=== PATIENT | female | born 1975 | race Caucasian/White ===

== ENCOUNTER 2016-10-17 22:53 | Emergency (ER) | payer SELFPAY ==
[~2016-10-17] VITALS: Ht 160 cm; Wt 72.6 kg
[~2016-10-17 22:53] MED LIST: AGM875T PO; PSEU120T16 PO
--- OUTSIDE RECORDS SUMMARY | 2016-10-17 22:57 | XMS REPORT | Continuity of Care Document ---
Author Author [facility] Organization [facility] Address Unknown Phone Unavailable Care Team Providers Care Medical Administrative Specialist Name Role Phone NO, LOCAL PHYSICIAN PCP Unavailable Insurance Providers Payer Name Policy Number Subscriber Name Relationship Self Pay Vannesa Prince 17 Self / Same As Patient Advance Directives Directive Response Recorded Date/Time Advance Directives No 01/04/15 12:13pm Resuscitation Status Full Code 01/04/15 12:13pm Problems Medical Problems Problem Onset Date Status Serous otitis media Unknown Active Medications Medication Dose Route Sig Days/Qty Instructions Order Date Discontinued Date Status Amoxicillin/Clavulanate K 1 Tab PO TWICE A DAY 20 Qty 01/04/15 Active Pseudoephedrine Hcl 120 Mg PO TWICE A DAY 14 Qty 01/04/15 Active Social History Social History Problem Response Recorded Date/Time Alcohol Use Occasionally Uses 01/04/2015 12:13pm Recreational Drug Use No 01/04/2015 12:13pm Recent Foreign Travel No 01/04/2015 11:55am Recent Infectious Disease Exposure No 01/04/2015 11:55am Hospitalization with Isolation Denies 01/04/2015 11:55am Sexually Transmitted Disease No 01/04/2015 12:13pm Smoking Status Current Everyday Smoker 01/04/2015 12:13pm Query Response Start Date Stop Date Smoking Status Current Everyday Smoker Hospital Discharge Instructions No hospital discharge instructions. Plan of Care No plan of care. Functional Status No functional status results. Allergies, Adverse Reactions, Alerts Allergen Type Severity Reaction Status Last Updated No Known Drug Allergies Active 01/04/15 Immunizations No immunization records. Vital Signs Acute Vital Signs Vital Response Date/Time Temperature (Fahrenheit) 98.6 degrees F (97.6 - 99.5) Temperature (Calculated Celsius) 37.30528 degrees C (36.4 - 37.5) Pulse Rate (adult) 70 bpm (60 - 90) Respiratory Rate 16 bpm (12 - 24) O2 Sat by Pulse Oximetry 98 % (88 - 100) Blood Pressure 130/101 mm Hg Pain Pain Intensity 0 Height (Feet) 5 feet Height (Inches) 3 inches Height (Calculated Centimeters) 160.243599 cm Weight (Pounds) 150 pounds Weight (Calculated Kilograms) 68.419809 kilograms Calculated BMI 26.57 Results No known relevant diagnostic tests, laboratory data and/or discharge summary. Procedures No known history of procedures. Encounters Encounter Location Date/Time Departed Emergency Room Via [facility] 01/04/15 11:33am Recent Diagnosis
[2016-10-17] MEDS ORDERED: LACTATED RINGERS 1,000 ML IV ONE (23:08)
[2016-10-17 23:42] LABS: BASOPHILS # (AUTO) 0.1 10^3/uL (0.0-0.1); BASOPHILS % (AUTO) 1 % (0-10); EOSINOPHILS # (AUTO) 0.3 10^3/uL (0.0-0.3); EOSINOPHILS % (AUTO) 2 % (0-10); LYMPHOCYTES % (AUTO) 32 % (12-44); MEAN CORPUSCULAR HEMOGLOBIN 31 PG (25-34); MEAN CORPUSCULAR HGB CONC 34 G/DL (32-36); MEAN CORPUSCULAR VOLUME 93 FL (80-99); MEAN PLATELET VOLUME 11.2 FL (7.4-10.4); MONOCYTES # (AUTO) 1.1 X 10^3 (0.0-1.0); MONOCYTES % (AUTO) 8 % (0-12); NEUTROPHILS # (AUTO) 7.4 X 10^3 (1.8-7.8); NEUTROPHILS % (AUTO) 57 % (42-75); PLATELET COUNT 245 10^3/uL (130-400); RED BLOOD COUNT 4.88 10^6/uL (4.35-5.85); WHITE BLOOD COUNT 12.8 10^3/uL (4.3-11.0)
[2016-10-18] MEDS ORDERED: LACTATED RINGERS 1,000 ML IV ONE (00:24)
[2016-10-18 00:27] LABS: ALANINE AMINOTRANSFERASE 25 U/L (0-55); ALBUMIN 4.4 G/DL (3.2-4.5); ALCOHOL 208 MG/DL (<10); ANION GAP 14 MMOL/L (5-14); ASPARTATE AMINO TRANSFERASE 20 U/L (5-34); BILIRUBIN,TOTAL 0.2 MG/DL (0.1-1.0); BLOOD UREA NITROGEN 10 MG/DL (7-18); BUN/CREATININE RATIO 12; CALCIUM 9.2 MG/DL (8.5-10.1); CARBON DIOXIDE 19 MMOL/L (21-32); CHLORIDE 109 MMOL/L (98-107); CREATININE SERUM 0.84 MG/DL (0.60-1.30); GFR ESTIMATED > 60; GLUCOSE 96 MG/DL (70-105); POTASSIUM 3.8 MMOL/L (3.6-5.0); SALICYLATE < 5.0 MG/DL (5.0-20.0); SODIUM 142 MMOL/L (135-145); TOTAL PROTEIN 7.8 G/DL (6.4-8.2)
[2016-10-18 00:30] LABS: ACETAMINOPHEN < 10 UG/ML (10-30)
--- NOTE | 2016-10-18 00:59 | ED Psychosocial ---
General Chief Complaint: Substance Abuse Stated Complaint: AMS Nursing Triage Note: PT TO ED 6 PER EMS FOR C/O ETOH INTOXICATION. PT STATES "I'M A DRUNK". REPORTS SHE'S HAD "8-10 TODAY". DENIES THOUGHTS OF SELF HARM AT THIS TIME. Source: patient, EMS Exam Limitations: other (PT CONTRADICTS HERSELF MULTIPLE TIMES) History of Present Illness Time seen by provider: 23:05 Initial Comments PT ARRIVES VIA EMS FROM HOME--EMS WAS REPORTEDLY CALLED FOR [facility] PT STATES SHE IS HERE "BECAUSE I'M A DRUNK" PT STATES SHE HAS HAD "8 -10" --WILL NOT STATE WHAT SHE WAS DRINKING PT STATES THIS IS NO DIFFERENT TODAY--STATES "I'M TO THE POINT THAT I'M DONE DRINKING" THEN STATES SHE DRINKS " VERY SELDOM" "MAYBE 8 BEERS ON A WEEKEND" THEN STATES "I DRINK AND I POP PILLS" --STATES SHE TOOK OTC DIET PILLS > 13 YEARS AGO AND "NARCOTICS" OVER 13 YEARS AGO--BUT WILL NOT STATE WHAT KIND, AND ADAMANTLY DENIES TAKING PILLS OF ANY KIND FOR OVER 13 YEARS PT STATES "THE DIET PILLS HAVE REALLY AFFECTED ME AND NOBODY WANTS TO LISTEN" PT STATES SHE WANTS TREATMENT FOR DRUG AND ALCOHOL ABUSE STATES SHE HAS NEVER SOUGHT CARE AT ANY TIME FOR DRUG OR ALCOHOL ABUSE--STATES "I NEVER GAVE IT ANY THOUGHT--I DON'T DO IT VERY OFTEN" PT DENIES SUICIDAL THOUGHTS/ATTEMPTS NO PCP Allergies and Home Medications Allergies Coded Allergies: No Known Drug Allergies (Unverified , 01/04/15) Home Medications Amoxicillin/Clavulanate K 875 Mg Tab #20 1 TAB PO BID Prescribed by: CHEN RUBIO on 01/04/15 1235 Pseudoephedrine Hcl 120 Mg Tablet.sa #14 120 MG PO BID Prescribed by: CHEN RUBIO on 01/04/15 1235 Constitutional: no symptoms reported EENTM: no symptoms reported Respiratory: no symptoms reported Cardiovascular: no symptoms reported Gastrointestinal: no symptoms reported Genitourinary: no symptoms reported : No Control/STD Prophylaxis: Other (BTL) Musculoskeletal: no symptoms reported Skin: no symptoms reported Psychiatric/Neurological: No Symptoms ReportedDenies Anxiety, Denies Depressed , Denies Emotional Problems, Denies Headache, Denies Numbness, Denies Paresthesia, Denies Seizure, Denies Tingling, Denies Tremors, Denies Weakness Past Ttthwsg-Radtda-Taqzvf Hx Patient Social History Alcohol Use: Occasionally Uses (HEAVY AT TIMES) Recreational Drug Use: Yes ("PILLS"--OTC DIET PILLS, "NARCOTICS" ( WILL NOT ELABORATE) > 13 YEARS AGO, PER PT ON 10/17/16) Drug of Choice: HX OF Smoking Status: Current Everyday Smoker (1/2-1 PPD) Type Used: Cigarettes Recent Foreign Travel: No Contact w/Someone Who Travel: No Recent Infectious Disease Expo: No Recent Hopitalizations: No Surgeries HX Surgeries: Yes ( X 3) Surgeries: Section, Tubal Ligation Respiratory Hx Respiratory Disorders: No Cardiovascular Hx Cardiac Disorders: No Neurological Hx Neurological Disorders: No Reproductive System : No Hx : 3 Hx Para: 3 Hx Total # of Abortions (Spona: 0 Hx Reproductive Disorders: No Sexually Transmitted Disease: No 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 Genitourinary Hx Genitourinary Disorders: No Gastrointestinal Hx Gastrointestinal Disorders: No Musculoskeletal Hx Musculoskeletal Disorders: No Endocrine Hx Endocrine Disorders: No HEENT HX ENT Disorders: No Cancer Hx Cancer: No Psychosocial Hx Psychiatric Problems: No Integumentary HX Skin/Integumentary Disorder: No Blood Transfusions Hx Blood Disorders: No Physical Exam Vital Signs Vital Sign - Last 12Hours 10/17/16 23:03 Temp 99.2 Pulse 114 Resp 24 B/P 130/84 Pulse Ox 97 O2 Delivery Room Air Capillary Refill : Less Than 3 Seconds General Appearance: WD/WN no apparent distress HEENT: PERRL/EOMI Neck: non-tender full range of motion supple normal inspection Respiratory: normal breath sounds no respiratory distress no accessory muscle use Cardiovascular: normal peripheral pulses regular rate, rhythm no edema no JVD no murmur Gastrointestinal: normal bowel sounds non tender soft no organomegaly Extremities: normal range of motion non-tender normal inspection no pedal edema no calf tenderness normal capillary refill Neurologic/Psychiatric: corn cutter II-XII nml as tested no motor/sensory deficits alert normal mood/affect oriented x 3 other (SPEECH CLEAR, GAIT STEADY) Appearance/Memory: no memory impairment Behavior/Eye Contact: cooperative good eye contact normal speech Thoughts/Hallucinations: no apparent hallucination Skin: normal color warm/dry Progress/Results/Core Measures Results/Orders Lab Results Laboratory Tests Test 10/17/16 01:29 10/17/16 23:35 Range/Units Ur Tricyclic Antidepressants Screen NEGATIVE NEGATIVE Urine Amphetamines Screen NEGATIVE NEGATIVE Urine Bacteria TRACE /HPF Urine Barbiturates Screen NEGATIVE NEGATIVE Urine Benzodiazepines Screen NEGATIVE NEGATIVE Urine Bilirubin NEGATIVE NEGATIVE Urine Cannabinoids Screen NEGATIVE NEGATIVE Urine Casts NONE /LPF Urine Clarity CLEAR Urine Cocaine Screen NEGATIVE NEGATIVE Urine Color YELLOW Urine Crystals NONE /LPF Urine Culture Indicated NO Urine Glucose (UA) NEGATIVE NEGATIVE Urine Ketones 2+ H NEGATIVE Urine Leukocyte Esterase NEGATIVE NEGATIVE Urine Methadone Screen NEGATIVE NEGATIVE Urine Methamphetamines Screen NEGATIVE NEGATIVE Urine Mucus NEGATIVE /LPF Urine Nitrite NEGATIVE NEGATIVE Urine Opiates Screen NEGATIVE NEGATIVE Urine Oxycodone Screen NEGATIVE NEGATIVE Urine Phencyclidine Screen NEGATIVE NEGATIVE Urine Propoxyphene Screen NEGATIVE NEGATIVE Urine Protein NEGATIVE NEGATIVE Urine RBC NONE /HPF Urine RBC (Auto) NEGATIVE NEGATIVE Urine Specific [place] 1.015 L 1.016-1.022 Urine Squamous Epithelial Cells 0-2 /HPF Urine Urobilinogen NORMAL NORMAL MG/DL Urine WBC NONE /HPF Urine pH 5 5-9 Acetaminophen Level < 10 L 10-30 UG/ML Alanine Aminotransferase (ALT/SGPT) 25 0-55 U/L Albumin 4.4 3.2-4.5 G/DL Alkaline Phosphatase 48 40-136 U/L Anion Gap 14 5-14 MMOL/L Aspartate Amino Transf (AST/SGOT) 20 5-34 U/L BUN/Creatinine Ratio 12 Basophils # (Auto) 0.1 0.0-0.1 10^3/uL Basophils (%) (Auto) 1 0-10 % Blood Urea Nitrogen 10 7-18 MG/DL Calcium Level 9.2 8.5-10.1 MG/DL Carbon Dioxide Level 19 L 21-32 MMOL/L Chloride Level 109 H 98-107 MMOL/L Creatinine 0.84 0.60-1.30 MG/DL Eosinophils # (Auto) 0.3 0.0-0.3 10^3/uL Eosinophils (%) (Auto) 2 0-10 % Estimat Glomerular Filtration Rate > 60 Glucose Level 96 70-105 MG/DL Hematocrit 45 35-52 % Hemoglobin 15.3 11.5-16.0 G/DL Lymphocytes # (Auto) 4.0 1.0-4.0 X 10^3 Lymphocytes (%) (Auto) 32 12-44 % Mean Corpuscular Hemoglobin 31 25-34 PG Mean Corpuscular Hemoglobin Concent 34 32-36 G/DL Mean Corpuscular Volume 93 80-99 FL Mean Platelet Volume 11.2 H 7.4-10.4 FL Monocytes # (Auto) 1.1 H 0.0-1.0 X 10^3 Monocytes (%) (Auto) 8 0-12 % Neutrophils # (Auto) 7.4 1.8-7.8 X 10^3 Neutrophils (%) (Auto) 57 42-75 % Platelet Count 245 130-400 10^3/uL Potassium Level 3.8 3.6-5.0 MMOL/L Red Blood Count 4.88 4.35-5.85 10^6/uL Red Cell Distribution Width 13.0 10.0-14.5 % Salicylates Level < 5.0 L 5.0-20.0 MG/DL Serum Alcohol 208 H <10 MG/DL Serum Test, Qualitative NEGATIVE NEGATIVE Sodium Level 142 135-145 MMOL/L TSH [place] Testing 0.98 0.35-4.94 UIU/ML Total Bilirubin 0.2 0.1-1.0 MG/DL Total Protein 7.8 6.4-8.2 G/DL White Blood Count 12.8 H 4.3-11.0 10^3/uL My Orders Orders-SANDRAROSETTA K DO Ua Culture If Indicated (10/17/16 23:08) Thyroid Analyzer (10/17/16 23:08) Drug Screen Stat (Urine) (10/17/16 23:08) Cbc With Automated Diff (10/17/16 23:08) Comprehensive Metabolic Panel (10/17/16 23:08) Alcohol (10/17/16 23:08) Acetaminophen (10/17/16 23:08) Salicylate (10/17/16 23:08) Ekg Tracing (10/17/16 23:08) Monitor-Rhythm Ecg Trace Only (10/17/16 23:08) Saline Lock/Iv-Start (10/17/16 23:08) Hcg,Qualitative Serum (10/17/16 23:08) Saline Lock/Iv-Start (10/17/16 23:08) Lactated Ringers (Lr 1000 Ml Iv Solution (10/17/16 23:08) Ct Head Wo (10/18/16 00:01) Saline Lock/Iv-Start (10/18/16 00:24) Lactated Ringers (Lr 1000 Ml Iv Solution (10/18/16 00:24) Medications Given in ED Current Medications Medications Dose Ordered Sig/Aaron Route Start Time Stop Time Status Last Admin Dose Admin Lactated Ringer's 1,000 ml @ 0 mls/hr Q0M ONCE IV 10/17/16 23:08 10/17/16 23:18 DC 10/17/16 23:35 1,000 MLS/HR Lactated Ringer's 1,000 ml @ 0 mls/hr Q0M ONCE IV 10/18/16 00:24 10/18/16 00:25 DC 10/18/16 00:24 1,000 MLS/HR Vital Signs/I&O Vital Sign - Last 12Hours 10/17/16 23:03 Temp 99.2 Pulse 114 Resp 24 B/P 130/84 Pulse Ox 97 O2 Delivery Room Air Blood Pressure Mean: 99 Progress Note : Progress Note PT SLEPT FOR MOST OF ER STAY NO ABNORMAL BEHAVIOR PT REMAINED CALM AND COOPERATIVE THROUGHOUT ER STAY SPEECH CLEAR AND GAIT STEADY THROUGHOUT ER STAY ECG Initial ECG Impression Time: 23:23 Initial ECG Rate: 110 Initial ECG Rhythm: S.Tach Diagnostic Imaging Comments CT HEAD--NO ACUTE PROCESS, PER [facility] VIA FAX @ [id number] Reviewed: Reviewed by Me Departure Impression Impression: Primary Impression: Alcohol abuse Additional Impression: Alcohol intoxication Disposition: 01 HOME, SELF-CARE Condition: Stable Departure-Patient Inst. Referrals: NO,LOCAL PHYSICIAN (PCP/Family) Primary Care Physician Patient Instructions: ALCOHOL AND SUBSTANCE ABUSE, Alcohol Abuse and Alcoholism (DC), Drug Abuse and Drug Addiction (DC) Add. Discharge Instructions: LOTS OF CLEAR LIQUIDS NO DRUGS OR ALCOHOL CALL THIS MORNING TO ARRANGE FOR OUTPATIENT SUBSTANCE ABUSE TREATMENT --[facility] IN [place], [facility] IN [place], OR FACILITY OF YOUR CHOICE All discharge instructions reviewed with patient and/or family. Voiced understanding. ROSETTA FLORES DO Oct 18, 2016 00:59
[2016-10-18 01:36] LABS: BILIRUBIN,URINE NEGATIVE (NEGATIVE); KETONES,URINE 2+ (NEGATIVE); LEUKOCYTE ESTERASE ,URINE NEGATIVE (NEGATIVE); NITRITE,URINE NEGATIVE (NEGATIVE); PH,URINE 5 (5-9); PROTEIN,URINE NEGATIVE (NEGATIVE); UROBILINOGEN,URINE NORMAL (NORMAL)
[2016-10-18 01:43] LABS: SQUAMOUS EPITHELIAL CELL,UR 0-2 /HPF
[2016-10-18 02:08] VITALS: BP 105/73
--- NOTE | 2016-10-18 06:53 | Diagnostic Imaging Report ---
PROCEDURE: CT head without contrast. TECHNIQUE: Multiple contiguous axial images were obtained through the brain without the use of intravenous contrast. INDICATION: Mental status changes. There is no intracranial hemorrhage, hydrocephalus, edema, mass or mass effect. Orbits, sinuses and calvarium unremarkable. The basilar cisterns are patent. No sulcal effacement. IMPRESSION: No hemorrhage, infarct or acute appearing abnormality. Dictated by: Dictated on workstation # [id number]
== END 2016-10-18 02:08 | disposition home or self-care (01) ==
LOC: EDUNIT# 22:53 → ER 22:54
DX: F10.129 Alcohol abuse with intoxication, unspecified (principal); Y90.7 Blood alcohol level of 200-239 mg/100 ml; F17.210 Nicotine dependence, cigarettes, uncomplicated
CPT/HCPCS: 36415; 70450; 80053; 80306; 80320; 80329; 81000; 84443; 84703; 85025; 93005; 96360; 96361

== ENCOUNTER 2017-11-08 01:01 | Observation (INO) | payer SELFPAY ==
[2017-11-08] VITALS (16 sets, daily range): BP systolic 82–104; BP diastolic 35–74
[~2017-11-08] VITALS: Ht 160 cm; Wt 84.4 kg
[2017-11-08] MEDS ORDERED: LACTATED RINGERS 1,000 ML IV ONE (01:10)
[2017-11-08 01:26] LABS: BASOPHILS # (AUTO) 0.1 10^3/uL (0.0-0.1); BASOPHILS % (AUTO) 0 % (0-10); BILIRUBIN,URINE NEGATIVE (NEGATIVE); CLARITY,URINE CLEAR; COLOR,URINE YELLOW; EOSINOPHILS # (AUTO) 0.2 10^3/uL (0.0-0.3); EOSINOPHILS % (AUTO) 1 % (0-10); GLUCOSE, URINE (UA) NEGATIVE (NEGATIVE); HEMATOCRIT 43 % (35-52); HEMOGLOBIN 14.7 G/DL (11.5-16.0); KETONES,URINE NEGATIVE (NEGATIVE); LEUKOCYTE ESTERASE ,URINE NEGATIVE (NEGATIVE); LYMPHOCYTES # (AUTO) 4.9 X 10^3 (1.0-4.0); LYMPHOCYTES % (AUTO) 35 % (12-44); MEAN CORPUSCULAR HEMOGLOBIN 32 PG (25-34); MEAN CORPUSCULAR HGB CONC 34 G/DL (32-36); MEAN CORPUSCULAR VOLUME 93 FL (80-99); MEAN PLATELET VOLUME 11.7 FL (7.4-10.4); MONOCYTES # (AUTO) 0.8 X 10^3 (0.0-1.0); MONOCYTES % (AUTO) 6 % (0-12); NEUTROPHILS % (AUTO) 58 % (42-75); NITRITE,URINE NEGATIVE (NEGATIVE); PH,URINE 5 (5-9); PLATELET COUNT 229 10^3/uL (130-400); PROTEIN,URINE NEGATIVE (NEGATIVE); RED BLOOD COUNT 4.64 10^6/uL (4.35-5.85); RED CELL DISTRIBUTION WIDTH 12.9 % (10.0-14.5); UROBILINOGEN,URINE NORMAL (NORMAL); WHITE BLOOD COUNT 13.9 10^3/uL (4.3-11.0)
[2017-11-08 01:38] LABS: BACTERIA,URINE NEGATIVE /HPF
[2017-11-08 01:39] LABS: SQUAMOUS EPITHELIAL CELL,UR 0-2 /HPF
[2017-11-08 01:40] LABS: AMPHETAMINE SCREEN, URINE NEGATIVE (NEGATIVE); BARBITURATE SCREEN URINE NEGATIVE (NEGATIVE); BENZODIAZEPINES SCREEN URINE NEGATIVE (NEGATIVE); CANNABINOID SCREEN, URINE NEGATIVE (NEGATIVE); COCAINE SCREEN URINE NEGATIVE (NEGATIVE); METHADONE STAT NEGATIVE (NEGATIVE); METHAMPHETAMINE SCREEN URINE S NEGATIVE (NEGATIVE); OPIATE SCREEN URINE NEGATIVE (NEGATIVE); OXYCODONE STAT NEGATIVE (NEGATIVE); PROPOXYPHENE STAT NEGATIVE (NEGATIVE); TRICYCLIC ANTIDEPRESSANTS SCRE NEGATIVE (NEGATIVE)
[2017-11-08 01:49] LABS: ACETAMINOPHEN < 10 UG/ML (10-30); ALANINE AMINOTRANSFERASE 18 U/L (0-55); ALBUMIN 4.4 GM/DL (3.2-4.5); ALKALINE PHOSPHATASE 45 U/L (40-136); BILIRUBIN,TOTAL 0.2 MG/DL (0.1-1.0); BUN/CREATININE RATIO 15; CALCIUM 9.5 MG/DL (8.5-10.1); CARBON DIOXIDE 18 MMOL/L (21-32); CHLORIDE 111 MMOL/L (98-107); CREATININE SERUM 0.78 MG/DL (0.60-1.30); GFR ESTIMATED > 60; GLUCOSE 112 MG/DL (70-105); POTASSIUM 3.5 MMOL/L (3.6-5.0); SALICYLATE < 5.0 MG/DL (5.0-20.0); SODIUM 141 MMOL/L (135-145); TOTAL PROTEIN 7.9 GM/DL (6.4-8.2)
[2017-11-08 02:08] LABS: TSH (THYROID ANALYZER) 0.84 UIU/ML (0.35-4.94)
--- OUTSIDE RECORDS SUMMARY | 2017-11-08 02:39 | XMS REPORT | Continuity of Care Document ---
Author Author [facility] Address Unknown Phone Unavailable Allergies Active Description Code Type Severity Reaction Onset Reported/Identified Relationship to Patient Clinical Status Yes No Known Drug Allergies [id number] Drug Allergy Unknown N/A 01/04/2015 Medications There is no data. Problems Date Dx Coded Attending Type Code Diagnosis Diagnosed By 03/13/2014 AGUSTIN ESPINOZA APRN 381.01 ACUTE SEROUS OTITIS MEDIA 03/13/2014 AGUSTIN ESPINOZA APRN 381.01 ACUTE SEROUS OTITIS MEDIA 05/06/2014 AGUSTIN ESPINOZA APRN R 787.02 NAUSEA ALONE 01/04/2015 CHEN RUBIO APRN Ot 381.4 NONSUPP OTITIS MEDIA NOS 01/04/2015 CHEN RUBIO APRN Ot 388.70 OTALGIA NOS 10/19/2016 ROSETTA FLORES DO Ot F10.129 ALCOHOL ABUSE WITH INTOXICATION, UNSPECI 10/19/2016 ROSETTA FLORES DO Ot F17.210 NICOTINE DEPENDENCE, CIGARETTES, UNCOMPL 10/19/2016 ROSETTA FLORES DO Ot Y90.7 BLOOD ALCOHOL LEVEL OF 200-239 MG/100 ML Procedures Code Description Performed By Performed On J2550 PHENERGAN INJECTION UP TO 50 MG 05/06/2014 04407 THERAPUTIC INJ SQ/IM 05/06/2014 Results Test Result Range Complete urinalysis with reflex to culture - 10/17/16 01:29 Urine color determination YELLOW NRG Urine clarity determination CLEAR NRG Urine pH measurement by test strip 5 5-9 Specific gravity of urine by test strip 1.015 1.016- 1.022 Urine protein assay by test strip, semi-quantitative NEGATIVE NEGATIVE Urine glucose detection by automated test strip NEGATIVE NEGATIVE Erythrocytes detection in urine sediment by light microscopy NEGATIVE NEGATIVE Urine ketones detection by automated test strip 2+ NEGATIVE Urine nitrite detection by test strip NEGATIVE NEGATIVE Urine total bilirubin detection by test strip NEGATIVE NEGATIVE Urine urobilinogen measurement by automated test strip (mass/volume) NORMAL NORMAL Urine leukocyte esterase detection by dipstick NEGATIVE NEGATIVE Automated urine sediment erythrocyte count by microscopy (number/high power field) NONE NRG Automated urine sediment leukocyte count by microscopy (number/high power field ) NONE NRG Bacteria detection in urine sediment by light microscopy TRACE NRG Squamous epithelial cells detection in urine sediment by light microscopy 0-2 NRG Crystals detection in urine sediment by light microscopy NONE NRG Casts detection in urine sediment by light microscopy NONE NRG Mucus detection in urine sediment by light microscopy NEGATIVE NRG Complete urinalysis with reflex to culture NO NRG Urine drug screening test - 10/17/16 01:29 Urine phencyclidine detection by screening method NEGATIVE NEGATIVE Urine benzodiazepines detection by screening method NEGATIVE NEGATIVE Urine cocaine detection NEGATIVE NEGATIVE Urine amphetamines detection by screening method NEGATIVE NEGATIVE Urine methamphetamine detection by screening method NEGATIVE NEGATIVE Urine cannabinoids detection by screening method NEGATIVE NEGATIVE Urine opiates detection by screening method NEGATIVE NEGATIVE Urine barbiturates detection NEGATIVE NEGATIVE Screening urine tricyclic antidepressants detection NEGATIVE NEGATIVE Urine methadone detection by screening method NEGATIVE NEGATIVE Urine oxycodone detection NEGATIVE NEGATIVE Urine propoxyphene detection NEGATIVE NEGATIVE Complete blood count (CBC) with automated white blood cell (WBC) differential - 10/17/16 23:35 Blood leukocytes automated count (number/volume) 12.8 10*3/uL 4.3-11.0 Blood erythrocytes automated count (number/volume) 4.88 10*6/uL 4.35-5.85 Venous blood hemoglobin measurement (mass/volume) 15.3 g/dL 11.5-16.0 Blood hematocrit (volume fraction) 45 % 35-52 Automated erythrocyte mean corpuscular volume 93 [foz_us] 80-99 Automated erythrocyte mean corpuscular hemoglobin (mass per erythrocyte) 31 pg 25-34 Automated erythrocyte mean corpuscular hemoglobin concentration measurement ( mass/volume) 34 g/dL 32-36 Automated erythrocyte distribution width ratio 13.0 % 10.0-14.5 Automated blood platelet count (count/volume) 245 10*3/uL 130-400 Automated blood platelet mean volume measurement 11.2 [foz_us] 7.4-10.4 Automated blood neutrophils/100 leukocytes 57 % 42-75 Automated blood lymphocytes/100 leukocytes 32 % 12-44 Blood monocytes/100 leukocytes 8 % 0-12 Automated blood eosinophils/100 leukocytes 2 % 0-10 Automated blood basophils/100 leukocytes 1 % 0-10 Blood neutrophils automated count (number/volume) 7.4 10*3 1.8-7.8 Blood lymphocytes automated count (number/volume) 4.0 10*3 1.0-4.0 Blood monocytes automated count (number/volume) 1.1 10*3 0.0-1.0 Automated eosinophil count 0.3 10*3/uL 0.0-0.3 Automated blood basophil count (count/volume) 0.1 10*3/uL 0.0-0.1 Serum or plasma choriogonadotropin ( test) detection - 10/17/16 23:35 Serum or plasma choriogonadotropin ( test) detection NEGATIVE NEGATIVE Comprehensive metabolic panel - 10/17/16 23:35 Serum or plasma sodium measurement (moles/volume) 142 mmol/L 135-145 Serum or plasma potassium measurement (moles/volume) 3.8 mmol/L 3.6-5.0 Serum or plasma chloride measurement (moles/volume) 109 mmol/L 98-107 Carbon dioxide 19 mmol/L 21-32 Serum or plasma anion gap determination (moles/volume) 14 mmol/L 5-14 Serum or plasma urea nitrogen measurement (mass/volume) 10 mg/dL 7-18 Serum or plasma creatinine measurement (mass/volume) 0.84 mg/dL 0.60-1.30 Serum or plasma urea nitrogen/creatinine mass ratio 12 NRG Serum or plasma creatinine measurement with calculation of estimated glomerular filtration rate > NRG Serum or plasma glucose measurement (mass/volume) 96 mg/dL 70-105 Serum or plasma calcium measurement (mass/volume) 9.2 mg/dL 8.5-10.1 Serum or plasma total bilirubin measurement (mass/volume) 0.2 mg/dL 0.1-1.0 Serum or plasma alkaline phosphatase measurement (enzymatic activity/volume) 48 U/L 40-136 Serum or plasma aspartate aminotransferase measurement (enzymatic activity/ volume) 20 U/L 5-34 Serum or plasma alanine aminotransferase measurement (enzymatic activity/volume ) 25 U/L 0-55 Serum or plasma protein measurement (mass/volume) 7.8 g/dL 6.4-8.2 Serum or plasma albumin measurement (mass/volume) 4.4 g/dL 3.2-4.5 Serum or plasma thyrotropin measurement by detection limit <=0.05 miu/l (units/ volume) - 10/17/16 23:35 Serum or plasma thyrotropin measurement by detection limit <=0.05 miu/l (units/ volume) 0.98 u[iU]/mL 0.35-4.94 Serum or plasma salicylates measurement (mass/volume) - 10/17/16 23:35 Serum or plasma salicylates measurement (mass/volume) < mg/dL 5.0-20.0 Serum or plasma acetaminophen measurement (mass/volume) - 10/17/16 23:35 Serum or plasma acetaminophen measurement (mass/volume) < ug/mL 10-30 Serum or plasma ethanol measurement (mass/volume) - 10/17/16 23:35 Serum or plasma ethanol measurement (mass/volume) 208 mg/dL <10 Complete blood count (CBC) with automated white blood cell (WBC) differential - 11/08/17 01:15 Blood leukocytes automated count (number/volume) 13.9 10*3/uL 4.3-11.0 Blood erythrocytes automated count (number/volume) 4.64 10*6/uL 4.35-5.85 Venous blood hemoglobin measurement (mass/volume) 14.7 g/dL 11.5-16.0 Blood hematocrit (volume fraction) 43 % 35-52 Automated erythrocyte mean corpuscular volume 93 [foz_us] 80-99 Automated erythrocyte mean corpuscular hemoglobin (mass per erythrocyte) 32 pg 25-34 Automated erythrocyte mean corpuscular hemoglobin concentration measurement ( mass/volume) 34 g/dL 32-36 Automated erythrocyte distribution width ratio 12.9 % 10.0-14.5 Automated blood platelet count (count/volume) 229 10*3/uL 130-400 Automated blood platelet mean volume measurement 11.7 [foz_us] 7.4-10.4 Automated blood neutrophils/100 leukocytes 58 % 42-75 Automated blood lymphocytes/100 leukocytes 35 % 12-44 Blood monocytes/100 leukocytes 6 % 0-12 Automated blood eosinophils/100 leukocytes 1 % 0-10 Automated blood basophils/100 leukocytes 0 % 0-10 Blood neutrophils automated count (number/volume) 8.0 10*3 1.8-7.8 Blood lymphocytes automated count (number/volume) 4.9 10*3 1.0-4.0 Blood monocytes automated count (number/volume) 0.8 10*3 0.0-1.0 Automated eosinophil count 0.2 10*3/uL 0.0-0.3 Automated blood basophil count (count/volume) 0.1 10*3/uL 0.0-0.1 Serum or plasma choriogonadotropin ( test) detection - 11/08/17 01:15 Serum or plasma choriogonadotropin ( test) detection NEGATIVE NEGATIVE Complete urinalysis with reflex to culture - 11/08/17 01:15 Urine color determination YELLOW NRG Urine clarity determination CLEAR NRG Urine pH measurement by test strip 5 5-9 Specific gravity of urine by test strip 1.005 1.016- 1.022 Urine protein assay by test strip, semi-quantitative NEGATIVE NEGATIVE Urine glucose detection by automated test strip NEGATIVE NEGATIVE Erythrocytes detection in urine sediment by light microscopy NEGATIVE NEGATIVE Urine ketones detection by automated test strip NEGATIVE NEGATIVE Urine nitrite detection by test strip NEGATIVE NEGATIVE Urine total bilirubin detection by test strip NEGATIVE NEGATIVE Urine urobilinogen measurement by automated test strip (mass/volume) NORMAL NORMAL Urine leukocyte esterase detection by dipstick NEGATIVE NEGATIVE Automated urine sediment erythrocyte count by microscopy (number/high power field) NONE NRG Automated urine sediment leukocyte count by microscopy (number/high power field ) NONE NRG Bacteria detection in urine sediment by light microscopy NEGATIVE NRG Squamous epithelial cells detection in urine sediment by light microscopy 0-2 NRG Crystals detection in urine sediment by light microscopy NONE NRG Casts detection in urine sediment by light microscopy NONE NRG Mucus detection in urine sediment by light microscopy NEGATIVE NRG Complete urinalysis with reflex to culture NO NRG Urine drug screening test - 11/08/17 01:15 Urine phencyclidine detection by screening method NEGATIVE NEGATIVE Urine benzodiazepines detection by screening method NEGATIVE NEGATIVE Urine cocaine detection NEGATIVE NEGATIVE Urine amphetamines detection by screening method NEGATIVE NEGATIVE Urine methamphetamine detection by screening method NEGATIVE NEGATIVE Urine cannabinoids detection by screening method NEGATIVE NEGATIVE Urine opiates detection by screening method NEGATIVE NEGATIVE Urine barbiturates detection NEGATIVE NEGATIVE Screening urine tricyclic antidepressants detection NEGATIVE NEGATIVE Urine methadone detection by screening method NEGATIVE NEGATIVE Urine oxycodone detection NEGATIVE NEGATIVE Urine propoxyphene detection NEGATIVE NEGATIVE Comprehensive metabolic panel - 11/08/17 01:15 Serum or plasma sodium measurement (moles/volume) 141 mmol/L 135-145 Serum or plasma potassium measurement (moles/volume) 3.5 mmol/L 3.6-5.0 Serum or plasma chloride measurement (moles/volume) 111 mmol/L 98-107 Carbon dioxide 18 mmol/L 21-32 Serum or plasma anion gap determination (moles/volume) 12 mmol/L 5-14 Serum or plasma urea nitrogen measurement (mass/volume) 12 mg/dL 7-18 Serum or plasma creatinine measurement (mass/volume) 0.78 mg/dL 0.60-1.30 Serum or plasma urea nitrogen/creatinine mass ratio 15 NRG Serum or plasma creatinine measurement with calculation of estimated glomerular filtration rate > NRG Serum or plasma glucose measurement (mass/volume) 112 mg/dL 70-105 Serum or plasma calcium measurement (mass/volume) 9.5 mg/dL 8.5-10.1 Serum or plasma total bilirubin measurement (mass/volume) 0.2 mg/dL 0.1-1.0 Serum or plasma alkaline phosphatase measurement (enzymatic activity/volume) 45 U/L 40-136 Serum or plasma aspartate aminotransferase measurement (enzymatic activity/ volume) 16 U/L 5-34 Serum or plasma alanine aminotransferase measurement (enzymatic activity/volume ) 18 U/L 0-55 Serum or plasma protein measurement (mass/volume) 7.9 g/dL 6.4-8.2 Serum or plasma albumin measurement (mass/volume) 4.4 g/dL 3.2-4.5 Serum or plasma thyrotropin measurement by detection limit <=0.05 miu/l (units/ volume) - 11/08/17 01:15 Serum or plasma thyrotropin measurement by detection limit <=0.05 miu/l (units/ volume) 0.84 u[iU]/mL 0.35-4.94 Serum or plasma salicylates measurement (mass/volume) - 11/08/17 01:15 Serum or plasma salicylates measurement (mass/volume) < mg/dL 5.0-20.0 Serum or plasma acetaminophen measurement (mass/volume) - 11/08/17 01:15 Serum or plasma acetaminophen measurement (mass/volume) < ug/mL 10-30 Serum or plasma ethanol measurement (mass/volume) - 11/08/17 01:15 Serum or plasma ethanol measurement (mass/volume) 205 mg/dL <10 Encounters ACCT No. Visit Date/Time Discharge Status Pt. Type Provider Facility Loc./Unit Complaint [id number] 05/06/2014 15:10:00 05/06/2014 23:59:59 RAJEEV Outpatient AGUSTIN ESPINOZA APRN [id number] 03/13/2014 13:02:00 03/13/2014 23:59:59 CLS Outpatient AGUSTIN ESPINOZA APRN [id number] 10/17/2016 22:54:00 10/18/2016 02:08:00 DIS Outpatient ROSETTA FLORES DO [facility] AMS [id number] 01/04/2015 11:33:00 01/04/2015 13:07:00 DIS Emergency CHEN RUBIO APRN [facility] EAR ACHE [id number] 11/08/2017 01:27:00 Document Registration
[2017-11-08] MEDS ORDERED: D5 1/2 NS W/KCL 20 MEQ/L 1,000 ML IV ONE (04:08)
[2017-11-08] MEDS: D5 1/2 NS W/KCL 20 MEQ/L 1,000 ML IV SCH ×4 (04:10→11:55)
[2017-11-08] MEDS ORDERED: 1/2 NS IV SOLUTION 1,000 ML IV PRN (04:11)
[2017-11-08] MEDS ORDERED: LORazepam INJ 2 MG/ML (ATIVAN) VIAL IV PRN (04:15)
[2017-11-08] MEDS ORDERED: ONDANSETRON 4 MG (ZOFRAN) ORAL DISSOLVE TAB SL PRN (04:15)
[2017-11-08] MEDS ORDERED: ANTACID SUSP 30 ML UDC (MYLANTA) PO PRN (04:15)
[2017-11-08] MEDS ORDERED: LORazepam INJ 2 MG/ML (ATIVAN) VIAL IM/IV PRN (04:15)
[2017-11-08] MEDS ORDERED: SENNA W/DOCUSATE (SENOKOT S) TABLET PO PRN (04:15)
[2017-11-08] MEDS ORDERED: D5 1/2 NS 1000 ML IV SOLUTION 1,000 ML IV PRN (04:15)
[2017-11-08] MEDS ORDERED: ONDANSETRON 4 MG/2 ML (SDV) Z0FRAN IV PRN (04:15)
[2017-11-08] MEDS ORDERED: LORazepam 1 MG (ATIVAN) TAB PO PRN (04:15)
--- NOTE | 2017-11-08 07:31 | ED Psychosocial ---
General Chief Complaint: Overdose Stated Complaint: INTENTIONAL DRUG OVERDOSE;ALCOHOL INTOXICATION Nursing Triage Note: Pt brought in by ems with complaint of overdose. Per ems, pt took aorund 5 flexeril and 5 naproxen. Pt told ems that she was stressed out and thought taking pills would help her get help. Pt states she called ems herself after taking the pills. Source: patient, police, EMS Exam Limitations: intoxication, other (PT REFUSES TO ANSWER RELEVANT QUESTIONS/ AVOIDS-EVADES ALL RELEVANT QUESTIONS) History of Present Illness Date Seen by Provider: Nov 08, 2017 Time Seen by Provider: 01:01 Initial Comments PT ARRIVES VIA EMS FROM HOME--[facility] DEPUTY ALSO PRESENT CONFLICTING INFORMATION FROM PT, POLICE AND EMS PER DEPUTY, PT TOLD HIM THAT SHE WANTED TO AND WAS TRYING TO KILL HERSELF, THEN SHORTLY AFTER WARDS, CHANGED HER STORY AND STATED THAT SHE WASN'T TRYING TO KILL HERSELF. DEPUTY REPORTS THAT PT'S SON WAS PRESENT IN THE HOUSE AT THE TIME, AND THAT HE WENT NEXT DOOR AND TOLD HIS AUNT WHAT HAD HAPPENED, AND PT'S MOM WAS PRESENT WELL. EMS STATES THAT PT TOLD THEM THAT SHE "TOOK THE PILLS BECAUSE SHE WAS STRESSED OUT AND SHE THOUGHT SHE WOULD "GET HELP THIS WAY AND CALL EMS AND BRING HER TO THE HOSPITAL" SHE DENIED SUICIDE ATTEMPT TO EMS PER EMS, PT TOOK 13 Y.O. SON'S FLEXERIL AND NAPROXEN AT UNKNOWN TIME TONIGHT-- EMS REPORT THAT #15 FLEXERIL WERE PRESCRIBED, AND BOTTLE WAS EMPTY, BUT NO IDEA HOW MANY WERE ACTUALLY STILL IN THE BOTTLE WHEN PT REPORTEDLY TOOK THEM. 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 PT DENIES ANY PRIOR HISTORY OF SUICIDAL IDEATIONS/ATTEMPTS/OVERDOSES PT MAKES MULTIPLE REFERENCES TO, AND IS FIXATED ON NEEDING A WEATHERIZATION SPECIALIST, TALKING ABOUT CASE GOING TO SUPREME COURT, ETC. --THIS ALL SEEMS TO BE IN REFERENCE TO "OVER THE COUNTER DIET PILLS" THAT SHE WAS ADDICTED TO , FAR BACK 2002--STATES "SHE HASN'T BEEN RIGHT SINCE" PT ALSO STATES SHE WAS ADDICTED TO PAIN PILLS IN THIS SAME TIME PERIOD--WILL NOT STATE WHAT KIND PT CLAIMS SHE ONLY DRINKS "8-9 BEERS A WEEK" HOWEVER, ON PREVIOUS ER RECORD FROM 10/17/16, PT WAS BROUGHT TO ER FOR BELLIGERENT BEHAVIOR DUE TO ALCOHOL INTOXICATION AND PT HAD STATED AT THAT TIME "I'M A DRUNK" AND "I POP PILLS" NO PCP Allergies and Home Medications Allergies Coded Allergies: No Known Drug Allergies (Unverified , 11/08/17) Constitutional: no symptoms reported Respiratory: no symptoms reported Cardiovascular: no symptoms reported Gastrointestinal: no symptoms reported LMP: Oct 23, 2017 Psychiatric/Neurological: See HPI Past Sifkzql-Ksunkh-Dqolfv Hx Patient Social History Alcohol Use: Regular Use (HEAVY AT TIMES) Number of Drinks Today: AA Alcohol Beverage of Choice: Beer Recreational Drug Use: Yes (HX OF ABUSE OF "DIET PILLS AND PAIN PILLS" -WILL NOT ELABORATE WHAT KINDS) Drug of Choice: diet and pain pills Smoking Status: Current Everyday Smoker (1 PPD) Type Used: Cigarettes (1 PPD) Recent Foreign Travel: No Contact w/Someone Who Travel: No Recent Infectious Disease Expo: No Recent Hopitalizations: No Physical Abuse: No Sexual Abuse: No Seasonal Allergies Seasonal Allergies: No Surgeries History of Surgeries: Yes ( X 3) Surgeries: Section, Tubal Ligation Respiratory History of Respiratory Disorde: No Cardiovascular History of Cardiac Disorders: No Neurological History of Neurological Disord: No Reproductive System Hx Reproductive Disorders: No Sexually Transmitted Disease: No MEDIA RELATIONS INTERN History: Tubal Ligation Genitourinary History of Genitourinary Disor: No Gastrointestinal History of Gastrointestinal Di: No Musculoskeletal History of Musculoskeletal Dis: No Endocrine History of Endocrine Disorders: No HEENT History of HEENT Disorders: No Cancer History of Cancer: No Psychosocial History of Psychiatric Problem: No Suicide Risk Score: 6 Integumentary History of Skin or Integumenta: No Blood Transfusions History of Blood Disorders: No Physical Exam Vital Signs Vital Signs - First Documented 11/08/17 01:01 Temp 97.0 Pulse 92 Resp 16 B/P (MAP) 137/75 (95) Pulse Ox 99 O2 Delivery Room Air Capillary Refill : Less Than 3 Seconds General Appearance: WD/WN, no apparent distress, other (SITTING UP ON EMS CART AND ER CART. 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, no motor/sensory deficits, alert, oriented x 3 Appearance/Memory: no memory impairment, denies illness, disheveled, impaired insight Behavior/Eye Contact: good eye contact, normal speech Thoughts/Hallucinations: no apparent hallucination, No delusions, No grandiose , No paranoid, No phobic Skin: normal color, warm/dry Progress/Results/Core Measures Results/Orders Lab Results Laboratory Tests Test 11/08/17 01:15 Range/Units White Blood Count 13.9 H 4.3-11.0 10^3/uL Red Blood Count 4.64 4.35-5.85 10^6/uL Hemoglobin 14.7 11.5-16.0 G/DL Hematocrit 43 35-52 % Mean Corpuscular Volume 93 80-99 FL Mean Corpuscular Hemoglobin 32 25-34 PG Mean Corpuscular Hemoglobin Concent 34 32-36 G/DL Red Cell Distribution Width 12.9 10.0-14.5 % Platelet Count 229 130-400 10^3/uL Mean Platelet Volume 11.7 H 7.4-10.4 FL Neutrophils (%) (Auto) 58 42-75 % Lymphocytes (%) (Auto) 35 12-44 % Monocytes (%) (Auto) 6 0-12 % Eosinophils (%) (Auto) 1 0-10 % Basophils (%) (Auto) 0 0-10 % Neutrophils # (Auto) 8.0 H 1.8-7.8 X 10^3 Lymphocytes # (Auto) 4.9 H 1.0-4.0 X 10^3 Monocytes # (Auto) 0.8 0.0-1.0 X 10^3 Eosinophils # (Auto) 0.2 0.0-0.3 10^3/uL Basophils # (Auto) 0.1 0.0-0.1 10^3/uL Urine Color YELLOW Urine Clarity CLEAR Urine pH 5 5-9 Urine Specific [place] 1.005 L 1.016-1.022 Urine Protein NEGATIVE NEGATIVE Urine Glucose (UA) NEGATIVE NEGATIVE Urine Ketones NEGATIVE NEGATIVE Urine Nitrite NEGATIVE NEGATIVE Urine Bilirubin NEGATIVE NEGATIVE Urine Urobilinogen NORMAL NORMAL MG/DL Urine Leukocyte Esterase NEGATIVE NEGATIVE Urine RBC (Auto) NEGATIVE NEGATIVE Urine RBC NONE /HPF Urine WBC NONE /HPF Urine Squamous Epithelial Cells 0-2 /HPF Urine Crystals NONE /LPF Urine Bacteria NEGATIVE /HPF Urine Casts NONE /LPF Urine Mucus NEGATIVE /LPF Urine Culture Indicated NO Sodium Level 141 135-145 MMOL/L Potassium Level 3.5 L 3.6-5.0 MMOL/L Chloride Level 111 H 98-107 MMOL/L Carbon Dioxide Level 18 L 21-32 MMOL/L Anion Gap 12 5-14 MMOL/L Blood Urea Nitrogen 12 7-18 MG/DL Creatinine 0.78 0.60-1.30 MG/DL Estimat Glomerular Filtration Rate > 60 BUN/Creatinine Ratio 15 Glucose Level 112 H 70-105 MG/DL Calcium Level 9.5 8.5-10.1 MG/DL Total Bilirubin 0.2 0.1-1.0 MG/DL Aspartate Amino Transf (AST/SGOT) 16 5-34 U/L Alanine Aminotransferase (ALT/SGPT) 18 0-55 U/L Alkaline Phosphatase 45 40-136 U/L Total Protein 7.9 6.4-8.2 GM/DL Albumin 4.4 3.2-4.5 GM/DL TSH Baraga Testing 0.84 0.35-4.94 UIU/ML Serum Test, Qualitative NEGATIVE NEGATIVE Salicylates Level < 5.0 L 5.0-20.0 MG/DL Urine Opiates Screen NEGATIVE NEGATIVE Urine Oxycodone Screen NEGATIVE NEGATIVE Urine Methadone Screen NEGATIVE NEGATIVE Urine Propoxyphene Screen NEGATIVE NEGATIVE Acetaminophen Level < 10 L 10-30 UG/ML Urine Barbiturates Screen NEGATIVE NEGATIVE Ur Tricyclic Antidepressants Screen NEGATIVE NEGATIVE Urine Phencyclidine Screen NEGATIVE NEGATIVE Urine Amphetamines Screen NEGATIVE NEGATIVE Urine Methamphetamines Screen NEGATIVE NEGATIVE Urine Benzodiazepines Screen NEGATIVE NEGATIVE Urine Cocaine Screen NEGATIVE NEGATIVE Urine Cannabinoids Screen NEGATIVE NEGATIVE Serum Alcohol 205 H <10 MG/DL My Orders Orders - SANDRAROSETTA Zackary DO Ua Culture If Indicated (11/08/17 01:10) Thyroid Analyzer (11/08/17 01:10) Drug Screen Stat (Urine) (11/08/17 01:10) Cbc With Automated Diff (11/08/17 01:10) Comprehensive Metabolic Panel (11/08/17 01:10) Alcohol (11/08/17 01:10) Acetaminophen (11/08/17 01:10) Salicylate (11/08/17 01:10) Ekg Tracing (11/08/17 01:10) Monitor-Rhythm Ecg Trace Only (11/08/17 01:10) Hcg,Qualitative Serum (11/08/17 01:10) Saline Lock/Iv-Start (11/08/17 01:10) Lactated Ringers (Lr 1000 Ml Iv Solution (11/08/17 01:10) Medications Given in ED Current Medications Medications Dose Ordered Sig/Aaron Route Start Time Stop Time Status Last Admin Dose Admin Lactated Ringer's 1,000 ml @ 0 mls/hr Q0M ONCE IV 11/08/17 01:10 11/08/17 01:13 DC 11/08/17 01:45 1,000 MLS/HR Vital Signs/I&O Vital Sign - Last 12Hours 11/08/17 11/08/17 11/08/17 11/08/17 01:01 03:09 03:35 03:36 Temp 97.0 97.0 Pulse 92 80 85 Resp 16 20 B/P (MAP) 137/75 (95) 96/53 Pulse Ox 99 100 O2 Delivery Room Air Room Air Room Air 11/08/17 11/08/17 11/08/17 11/08/17 03:41 03:45 04:00 04:15 Temp 97.8 Pulse 82 77 87 96 B/P (MAP) 100/74 (83) 104/60 (75) 82/51 (61) 90/53 (65) Pulse Ox 100 100 97 100 O2 Delivery Room Air Room Air Room Air Room Air 11/08/17 11/08/17 11/08/17 11/08/17 04:30 04:45 05:00 05:15 Pulse 89 92 92 95 B/P (MAP) 94/52 (66) 86/46 (59) 88/48 (61) 95/59 (71) Pulse Ox 96 96 96 98 O2 Delivery Room Air Room Air Room Air Room Air 11/08/17 11/08/17 11/08/17 11/08/17 05:30 05:45 06:00 06:15 Pulse 89 92 86 90 B/P (MAP) 97/62 (74) 96/51 (66) 84/50 (61) 84/35 (51) Pulse Ox 97 98 97 97 O2 Delivery Room Air Room Air Room Air Room Air 11/08/17 11/08/17 06:30 06:45 Pulse 90 90 B/P (MAP) 89/38 (55) 98/59 (72) Pulse Ox 95 96 O2 Delivery Room Air Room Air Blood Pressure Mean: 72 Progress Note : Progress Note UNEVENTFUL ER STAY ECG Initial ECG Impression Date: Nov 08, 2017 Initial ECG Impression Time: 01:23 Initial ECG Rate: 93 Initial ECG Rhythm: Normal Sinus Departure Communication (Admissions) Progress Notes 0210--SPOKE WITH DR. NATARAJAN, HOSPITALIST, ACCEPTS PT FOR ADMIT Impression Impression: Primary Impression: Intentional drug overdose Additional Impressions: SUICIDAL GESTURE Alcohol intoxication Disposition: ADMITTED INPATIENT Condition: Stable Admissions Decision to Admit Reason: Admit from ER (General) Decision to Admit/Date: Nov 08, 2017 Time/Decision to Admit Time: 02:10 Departure-Patient Inst. Referrals: NO,LOCAL PHYSICIAN (PCP) Primary Care Physician Patient Instructions: ALCOHOL AND SUBSTANCE ABUSE ROSETTA FLORES DO Nov 08, 2017 07:31
--- NOTE | 2017-11-08 09:09 | Short Stay Summary-Hospitalist ---
HPI History of Present Illness: HPI/Chief Complaint CC: Questionable overdose with alcohol intoxication HPI: This is a 42-year-old white female with a known history of alcohol abuse last seen in the ER last October for alcohol intoxication who presents to the ER via EMS when her family called the ambulance due to purposeful Flexeril and naproxen overdose to kill herself. The patient has denied that since that time but she still remains drowsy and her alcohol level was 205 on admission. Her urine drug screen was negative. At this current time patient is awake but appears to be drowsy mental health professional has been consulted but the intention is to awaken the patient enough to be able to ambulate and eat and drink and then discharge home. 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[employer]) Alcohol Use: Regular Use (HEAVY AT TIMES) Number of Drinks Today: AA Alcohol Beverage of Choice: Beer Recreational Drug Use: Yes (HX OF ABUSE OF "DIET PILLS AND PAIN PILLS" -WILL NOT ELABORATE WHAT KINDS) Drug of Choice: diet and pain pills Smoking Status: Current Everyday Smoker (1 PPD) Type Used: Cigarettes (1 PPD) Physical Abuse Screen: No Sexual Abuse: No Recent Foreign Travel: No Contact w/other who traveled: No Recent Hopitalizations: No Recent Infectious Disease Expo: No Seasonal Allergies Seasonal Allergies: No Surgeries Yes ( X 3) Section, Tubal Ligation Respiratory No Cardiovascular No Neurological No Reproductive System Hx Reproductive Disorders: No Sexually 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 Genitourinary No Gastrointestinal No Musculoskeletal No Endocrine History of Endocrine Disorders: No HEENT History of HEENT Disorders: No Cancer No Psychosocial History of Psychiatric Problem: No Integumentary History of Skin or Integumenta: No Blood Transfusions History of Blood Disorders: No Review of Systems ROS-Unable to Obtain: unable to ascertain Constitutional: see HPI Physical Exam Physical Exam Vital Signs Vital Signs - First Documented 11/08/17 01:01 Temp 97.0 Pulse 92 Resp 16 B/P (MAP) 137/75 (95) Pulse Ox 99 O2 Delivery Room Air Capillary Refill : Less Than 3 Seconds General Appearance: No Apparent Distress, WD/WN, Chronically ill, Other (drowsy ) Eyes: Bilateral Eye Normal Inspection, Bilateral Eye PERRL HEENT: PERRL/EOMI, Normal ENT Inspection, Pharynx Normal Neck: Full Range of Motion, Normal Inspection, Non Tender, Supple, Carotid Bruit Respiratory: Chest Non Tender, Lungs Clear, Normal Breath Sounds, No Accessory Muscle Use, No Respiratory Distress Cardiovascular: Regular Rate, Rhythm, No Edema, No Gallop, No JVD, No Murmur, Normal Peripheral Pulses Gastrointestinal: Normal Bowel Sounds, No Organomegaly, No Pulsatile Mass, Non Tender, Soft Back: Normal Inspection, No CVA Tenderness, No Vertebral Tenderness Extremity: Normal Capillary Refill, Normal Inspection, Normal Range of Motion, Non Tender, No Calf Tenderness, No Pedal Edema Neurologic/Psychiatric: Alert, Oriented x3, No Motor/Sensory Deficits, Depressed Affect Skin: Normal Color, Warm/Dry Lymphatic: No Adenopathy Results Results/Procedures Lab Laboratory Tests 11/08/17 01:15 Short Stay Diagnosis Discharge Diagnosis-Short Stay Admission Diagnosis Assessment: Questionable suicide attempt with alcohol intoxication and Flexeril and naproxen overdose Smoker Final Discharge Diagnosis Assessment: Questionable suicide attempt with alcohol intoxication and Flexeril and naproxen overdose Smoker Conclusion Plan Plan: Mental health professional once patient awakens enough to eat and drink and ambulate Discharge home with psychiatric counseling Clinical Quality Measures DVT/VTE Risk/Contraindication: Risk Factor Score Per Nursin RFS Level Per Nursing on Admit: 2=Moderate JAMES GRANADOS DO Nov 08, 2017 09:09
[2017-11-08] MEDS ORDERED: THIAMINE 100 MG/ML 2 ML (VITAMIN B-1) VIAL IV NR (09:22)
[2017-11-08] MEDS ORDERED: FOLIC ACID 5MG/ML 10 ML IV NR (09:22)
== END 2017-11-08 16:25 | disposition home or self-care (01) ==
LOC: EDUNIT# 01:01 → ER 01:02 → ICU 02:10 → UNDOADMOB 02:10 → ICU 03:17 → UNDODISOB 16:25
PROVIDERS: ADMIT Internal Medicine; ATTEND Internal Medicine
DX: T48.1X4A Poisoning by skeletal muscle relaxants [neuromuscular blocking agents], undetermined, initial encounter (principal); T39.314A Poisoning by propionic acid derivatives, undetermined, initial encounter; F10.229 Alcohol dependence with intoxication, unspecified; F17.210 Nicotine dependence, cigarettes, uncomplicated
CPT/HCPCS: 36415; 80053; 80306; 80320; 80329; 81000; 84443; 84703; 85025; 93005; 93041; 96360

== ENCOUNTER 2018-07-18 14:54 | Emergency (ER) | payer MEDICAID, OTHER ==
[~2018-07-18] VITALS: Ht 160 cm; Wt 81.6 kg
[2018-07-18 15:27] LABS: BASOPHILS % (AUTO) 0 % (0-10); EOSINOPHILS # (AUTO) 0.2 10^3/uL (0.0-0.3); EOSINOPHILS % (AUTO) 2 % (0-10); HEMATOCRIT 44 % (35-52); HEMOGLOBIN 14.8 G/DL (11.5-16.0); LYMPHOCYTES # (AUTO) 3.3 X 10^3 (1.0-4.0); LYMPHOCYTES % (AUTO) 26 % (12-44); MEAN CORPUSCULAR HEMOGLOBIN 31 PG (25-34); MEAN CORPUSCULAR HGB CONC 34 G/DL (32-36); MEAN CORPUSCULAR VOLUME 94 FL (80-99); MEAN PLATELET VOLUME 11.7 FL (7.4-10.4); MONOCYTES # (AUTO) 1.1 X 10^3 (0.0-1.0); MONOCYTES % (AUTO) 9 % (0-12); NEUTROPHILS # (AUTO) 8.1 X 10^3 (1.8-7.8); NEUTROPHILS % (AUTO) 64 % (42-75); PLATELET COUNT 235 10^3/uL (130-400); RED BLOOD COUNT 4.72 10^6/uL (4.35-5.85); RED CELL DISTRIBUTION WIDTH 12.9 % (10.0-14.5); WHITE BLOOD COUNT 12.6 10^3/uL (4.3-11.0)
[2018-07-18 15:33] LABS: BILIRUBIN,URINE NEGATIVE (NEGATIVE); CLARITY,URINE SLIGHTLY CLOUDY; COLOR,URINE YELLOW; GLUCOSE, URINE (UA) NEGATIVE (NEGATIVE); KETONES,URINE NEGATIVE (NEGATIVE); LEUKOCYTE ESTERASE ,URINE 1+ (NEGATIVE); NITRITE,URINE NEGATIVE (NEGATIVE); PH,URINE 5 (5-9); PROTEIN,URINE NEGATIVE (NEGATIVE); UROBILINOGEN,URINE 1 MG/DL (NORMAL)
--- NOTE | 2018-07-18 15:37 | ED Abdominal Pain ---
General Chief Complaint: Abdominal/GI Problems Stated Complaint: SIDE PAIN Source of Information: Patient Exam Limitations: No Limitations History of Present Illness Date Seen by Provider: Jul 18, 2018 Time Seen by Provider: 15:00 Initial Comments Patient is a 42 year old female who presents to the emergency room with complaints abdominal pain that started 2hrs prior to arrival. She reports that her pain started after eating a ham sandwich for lunch. Also reports nausea. Timing/Duration: 1-3 Hours Location: Generalized Abdomen Radiation: No Radiation Associated Symptoms: Nausea/Vomiting Allergies and Home Medications Allergies Coded Allergies: No Known Drug Allergies (Unverified , 11/08/17) Home Medications Docusate Sodium 100 Mg Capsule, 100 MG PO BID Prescribed by: ALLEGRA ENGLISH on 07/22/18 1025 Hydrocodone Bit/Acetaminophen 1 Tab Tab, 1-2 EACH PO Q6H PRN for PAIN-MODERATE Prescribed by: ANALY TORRE on 07/18/18 1803 Hydrocodone Bit/Acetaminophen 1 Ea Tablet, 2 EA PO Q6HR PRN for PAIN-MODERATE Prescribed by: KARLA CORONADO on 07/23/18 0922 Ibuprofen 600 Mg Tablet, 600 MG PO Q6H Prescribed by: ALLEGRA ENGLISH on 07/22/18 1025 Magnesium Hydroxide 400 Mg/5 Ml Oral.susp, 30 ML PO DAILY PRN for constipation Prescribed by: ALLEGRA ENGLISH on 07/22/18 1025 Ondansetron 4 Mg Tab.rapdis, 4 MG SL Q4H PRN for NAUSEA/VOMITING-1ST LINE Prescribed by: ANALY TORRE on 07/18/18 1803 Simethicone 80 Mg Tab.chew, 80 MG PO q4hr PRN for gas pain Prescribed by: ALLEGRA ENGLISH on 07/22/18 1025 Patient Home Medication List Home Medication List Reviewed: Yes Review of Systems Review of Systems Constitutional: no symptoms reported, see HPI Gastrointestinal: See HPI, Abdominal Pain, Nausea All Other Systems Reviewed Negative Unless Noted: Yes Past Jbvqahl-Tvvhal-Movpzh Hx Past Med/Social Hx: Reviewed Nursing Past Med/Soc Hx Patient Social History Alcohol Use: Denies Use Number of Drinks Today: AA Alcohol Beverage of Choice: Beer Recreational Drug Use: No Drug of Choice: diet and pain pills Smoking Status: Current Everyday Smoker Type Used: Cigarettes Recent Hopitalizations: No Immunizations Up To Date Tetanus Booster (TDap): Unknown Seasonal Allergies Seasonal Allergies: No Past Medical History Surgeries: Yes ( X 3) Appendectomy, Section, Tubal Ligation Respiratory: No Cardiac: No Neurological: No 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 0.0oz. [id number]; 33.0 BMI Method:Stated General Appearance: WD/WN, no apparent distress Respiratory: chest non-tender, lungs clear, normal breath sounds, no respiratory distress, no accessory muscle use Cardiovascular: normal peripheral pulses, regular rate, rhythm, no edema, no gallop, no JVD, no murmur Gastrointestinal: normal bowel sounds, non tender, soft, no organomegaly, no pulsatile mass Back: normal inspection, no CVA tenderness, no vertebral tenderness Neurologic/Psychiatric: alert, normal mood/affect, oriented x 3 Skin: normal color, warm/dry Progress/Results/Core Measures Results/Orders Lab Results Laboratory Tests Test 07/18/18 15:12 Range/Units White Blood Count 12.6 H 4.3-11.0 10^3/uL Red Blood Count 4.72 4.35-5.85 10^6/uL Hemoglobin 14.8 11.5-16.0 G/DL Hematocrit 44 35-52 % Mean Corpuscular Volume 94 80-99 FL Mean Corpuscular Hemoglobin 31 25-34 PG Mean Corpuscular Hemoglobin Concent 34 32-36 G/DL Red Cell Distribution Width 12.9 10.0-14.5 % Platelet Count 235 130-400 10^3/uL Mean Platelet Volume 11.7 H 7.4-10.4 FL Neutrophils (%) (Auto) 64 42-75 % Lymphocytes (%) (Auto) 26 12-44 % Monocytes (%) (Auto) 9 0-12 % Eosinophils (%) (Auto) 2 0-10 % Basophils (%) (Auto) 0 0-10 % Neutrophils # (Auto) 8.1 H 1.8-7.8 X 10^3 Lymphocytes # (Auto) 3.3 1.0-4.0 X 10^3 Monocytes # (Auto) 1.1 H 0.0-1.0 X 10^3 Eosinophils # (Auto) 0.2 0.0-0.3 10^3/uL Basophils # (Auto) 0.0 0.0-0.1 10^3/uL Urine Color YELLOW Urine Clarity SLIGHTLY CLOUDY Urine pH 5 5-9 Urine Specific Malone 1.025 H 1.016-1.022 Urine Protein NEGATIVE NEGATIVE Urine Glucose (UA) NEGATIVE NEGATIVE Urine Ketones NEGATIVE NEGATIVE Urine Nitrite NEGATIVE NEGATIVE Urine Bilirubin NEGATIVE NEGATIVE Urine Urobilinogen 1 NORMAL MG/DL Urine Leukocyte Esterase 1+ H NEGATIVE Urine RBC (Auto) 1+ H NEGATIVE Urine RBC 0-2 /HPF Urine WBC 0-2 /HPF Urine Squamous Epithelial Cells 10-25 H /HPF Urine Crystals NONE /LPF Urine Bacteria FEW H /HPF Urine Casts NONE /LPF Urine Mucus LARGE H /LPF Urine Culture Indicated NO Sodium Level 140 135-145 MMOL/L Potassium Level 3.4 L 3.6-5.0 MMOL/L Chloride Level 105 98-107 MMOL/L Carbon Dioxide Level 23 21-32 MMOL/L Anion Gap 12 5-14 MMOL/L Blood Urea Nitrogen 14 7-18 MG/DL Creatinine 0.85 0.60-1.30 MG/DL Estimat Glomerular Filtration Rate > 60 BUN/Creatinine Ratio 16 Glucose Level 85 70-105 MG/DL Calcium Level 9.6 8.5-10.1 MG/DL Corrected Calcium 9.3 8.5-10.1 MG/DL Total Bilirubin 0.2 0.1-1.0 MG/DL Aspartate Amino Transf (AST/SGOT) 16 5-34 U/L Alanine Aminotransferase (ALT/SGPT) 15 0-55 U/L Alkaline Phosphatase 49 40-136 U/L Total Protein 7.8 6.4-8.2 GM/DL Albumin 4.4 3.2-4.5 GM/DL Amylase Level 67 25-125 U/L Lipase 43 8-78 U/L Serum Test, Qualitative NEGATIVE NEGATIVE My Orders Orders - ANALY TORRE Comprehensive Metabolic Panel (07/18/18 15:11) Lipase (07/18/18 15:11) Amylase (07/18/18 15:11) Ua Culture If Indicated (07/18/18 15:11) Hcg,Qualitative Serum (07/18/18 15:11) Saline Lock/Iv-Start (07/18/18 15:11) Cbc With Automated Diff (07/18/18 15:11) Ketorolac Injection (Toradol Injection) (07/18/18 15:45) Ct Abdomen/Pelvis W (07/18/18 15:53) Iohexol Injection (Omnipaque 350 Mg/Ml 1 (07/18/18 16:15) Contrast Received (Contrast Received) (07/18/18 16:15) Ns (Ivpb) (Sodium Chloride 0.9%) (07/18/18 16:15) Iv Push Manager Traffic Ed (07/18/18 ) Medications Given in ED Vital Signs/I&O 07/18/18 07/18/18 15:00 18:11 Temp 98.4 Pulse 119 95 Resp 18 18 B/P (MAP) 141/90 (107) 125/89 (101) Pulse Ox 100 98 O2 Delivery Room Air Progress Progress Note : Time: 18:00 Progress Note I have seen and evaluated the patient. Her pain is completely gone after the Toradol. I have informed her of her imaging studies and have discussed the findings with Dr. English who agrees to see the patient in her office this week. She believes that if she had a torsion that her pain would not be resolved with toradol nor be pain free on exam. The patient agrees with plans for follow up, plan of care, return precautions were given. Diagnostic Imaging Diagonstic Imaging: CT Plain Films/CT/US/NM/MRI: abdomen, pelvis Comments NAME: VANNESA LUQUE [employer] REC#: [id number] PHYSICIAN: ANALY TORRE CC: ANALY TORRE; SEJAL HUTCHINSON MD Page 2 of 2 RADIOLOGY REPORT VIA [facility], [facility]. [place], [place] CC: ANALY TORRE; SEJAL HUTCHINSON MD Page 1 of 1 RADIOLOGY REPORT NAME: VANNESA LUQUE [employer] REC#: [id number] PT STATUS: REG ER : 1975 PHYSICIAN: ANALY TORRE ADMIT DATE: 07/18/18/ER Signed Date of Exam: 07/18/18 CT ABDOMEN/PELVIS W PROCEDURE: CT abdomen and pelvis with contrast. TECHNIQUE: Multiple contiguous axial images were obtained through the abdomen and pelvis after administration of intravenous contrast. INDICATION: Right lower quadrant pain and nausea. COMPARISON: No prior studies are available for comparison. FINDINGS: The lung bases are clear. No discrete liver mass is seen. Gallbladder is contracted. No biliary ductal dilatation is seen. The pancreas and spleen are unremarkable. No adrenal mass is identified. The kidneys are unremarkable. The aorta is non-aneurysmal. The small and large bowel loops are normal caliber. No obstruction is seen. The appendix is visualized and unremarkable. There is a large fat-containing mass located within the pelvis measuring 7.7 cm AP x 8.3 cm transverse x 7.4 cm cephalocaudal. This does contain calcification along the margin and findings are consistent with an ovarian dermoid. The uterus and bladder are unremarkable. There is no ascites. No inflammatory process is detected. No abdominal or pelvic lymphadenopathy is seen. IMPRESSION: 1. No acute abnormality in the abdomen or pelvis is identified. 2. Large fat containing mass with calcification in the pelvis suggestive of an ovarian dermoid. No other significant abnormality is seen. Dictated by: Dictated on workstation # [id number] Dict: 07/18/18 1633 Trans: 07/18/18 1648 Interpreted by: SEJAL HUTCHINSON MD Electronically signed by: SEJAL HUTCHINSON MD 07/18/18 1648 Reviewed: Reviewed by Me Departure Impression Primary Impression: Abdominal pain Additional Impression: Dermoid cyst of ovary Disposition: HOME, SELF-CARE Condition: Stable/Unchanged Departure-Patient Inst. Decision time for Depature: 18:01 Referrals: NO,LOCAL PHYSICIAN (PCP) Primary Care Physician ALLEGRA ENGLISH DO Patient Instructions: Acute Abdomen (Belly Pain), Ovarian Cysts Add. Discharge Instructions: Take medication as directed. Be expecting a call from Dr. English's office tomorrow morning to schedule appointment time. Return back to the emergency room for any worsening symptoms or concerns as needed. All discharge instructions reviewed with patient and/or family. Voiced understanding. Scripts Ondansetron (Zofran Odt) 4 Mg Tab.rapdis 4 MG SL Q4H PRN for NAUSEA/VOMITING-1ST LINE, #14 TAB Prov: ANALY TORRE 07/18/18 Hydrocodone Bit/Acetaminophen (Hydrocodone/Acetaminophen 5/325mg Tablet) 1 Tab Tab 1-2 EACH PO Q6H PRN for PAIN-MODERATE MDD 10, #14 TAB Prov: ANALY TORRE 07/18/18 ANALY TORRE Jul 18, 2018 15:37
[2018-07-18 15:43] LABS: BACTERIA,URINE FEW /HPF; RBC,URINE 0-2 /HPF; WBC,URINE 0-2 /HPF
[2018-07-18] MEDS ORDERED: KETOROLAC 30 MG/ML VIAL IVP ONE (15:45)
[2018-07-18 15:47] LABS: ALANINE AMINOTRANSFERASE 15 U/L (0-55); ALBUMIN 4.4 GM/DL (3.2-4.5); ALKALINE PHOSPHATASE 49 U/L (40-136); AMYLASE 67 U/L (25-125); BILIRUBIN,TOTAL 0.2 MG/DL (0.1-1.0); BUN/CREATININE RATIO 16; CALCIUM 9.6 MG/DL (8.5-10.1); CARBON DIOXIDE 23 MMOL/L (21-32); CHLORIDE 105 MMOL/L (98-107); CREATININE SERUM 0.85 MG/DL (0.60-1.30); GFR ESTIMATED > 60; GLUCOSE 85 MG/DL (70-105); LIPASE 43 U/L (8-78); POTASSIUM 3.4 MMOL/L (3.6-5.0); SODIUM 140 MMOL/L (135-145); TOTAL PROTEIN 7.8 GM/DL (6.4-8.2)
[2018-07-18] MEDS ORDERED: NS 250 ML (IVPB) BAG IV ONE (16:15)
[2018-07-18] MEDS ORDERED: IOHEXOL 350 MG/ML 100 ML (OMNIPAQUE 350) VIAL IV ONE (16:15)
[2018-07-18] MEDS ORDERED: RECEIVED CONTRAST (Hold Metformin) IV SCH (16:15)
--- NOTE | 2018-07-18 16:48 | Diagnostic Imaging Report ---
PROCEDURE: CT abdomen and pelvis with contrast. TECHNIQUE: Multiple contiguous axial images were obtained through the abdomen and pelvis after administration of intravenous contrast. INDICATION: Right lower quadrant pain and nausea. COMPARISON: No prior studies are available for comparison. FINDINGS: The lung bases are clear. No discrete liver mass is seen. Gallbladder is contracted. No biliary ductal dilatation is seen. The pancreas and spleen are unremarkable. No adrenal mass is identified. The kidneys are unremarkable. The aorta is non-aneurysmal. The small and large bowel loops are normal caliber. No obstruction is seen. The appendix is visualized and unremarkable. There is a large fat-containing mass located within the pelvis measuring 7.7 cm AP x 8.3 cm transverse x 7.4 cm cephalocaudal. This does contain calcification along the margin and findings are consistent with an ovarian dermoid. The uterus and bladder are unremarkable. There is no ascites. No inflammatory process is detected. No abdominal or pelvic lymphadenopathy is seen. IMPRESSION: 1. No acute abnormality in the abdomen or pelvis is identified. 2. Large fat containing mass with calcification in the pelvis suggestive of an ovarian dermoid. No other significant abnormality is seen. Dictated by: Dictated on workstation # [id number]
[2018-07-18] MEDS ORDERED: ONDA4TAB8 SL (18:03)
[2018-07-18] MEDS ORDERED: ACHD5005 PO (18:03)
[2018-07-18 18:11] VITALS: BP 125/89
[2018-07-22] MEDS ORDERED: DOCU100C37 PO (10:25)
[2018-07-22] MEDS ORDERED: IBUP-844 PO (10:25)
[2018-07-22] MEDS ORDERED: ACHD5005 PO (10:25)
[2018-07-22] MEDS ORDERED: MAGN400O7 PO (10:25)
[2018-07-22] MEDS ORDERED: SIME80TA29 PO (10:25)
== END 2018-07-18 18:11 | disposition home or self-care (01) ==
LOC: EDUNIT# 14:54 → ER 14:55
DX: D27.9 Benign neoplasm of unspecified ovary (principal); R10.9 Unspecified abdominal pain; F32.9 Major depressive disorder, single episode, unspecified; F17.210 Nicotine dependence, cigarettes, uncomplicated; Z90.49 Acquired absence of other specified parts of digestive tract; Z98.51 Tubal ligation status
CPT/HCPCS: 36415; 74177; 80053; 81000; 82150; 83690; 84703; 85025; 96374

== ENCOUNTER 2018-07-20 13:45 | Outpatient (CLI) | payer MEDICAID ==
[~2018-07-20] VITALS: Ht 160 cm; Wt 73.9 kg
[~2018-07-20 13:45] MED LIST changes: +ACHD5005 PO; +ONDA4TAB8 SL
== END 2018-07-20 14:30 | disposition home or self-care (01) ==
LOC: PREOP 13:45
PROVIDERS: ATTEND Obstetrics & Gynecology
DX: Z01.818 Encounter for other preprocedural examination (principal)

== ENCOUNTER 2018-07-21 11:20 | Inpatient (IN) | payer MEDICAID ==
[~2018-07-21] VITALS: Ht 160 cm; Wt 73.9 kg
[2018-07-21 11:45] VITALS: BP 125/68
[2018-07-21 11:47] LABS: BILIRUBIN,URINE NEGATIVE (NEGATIVE); CLARITY,URINE CLEAR; COLOR,URINE YELLOW; GLUCOSE, URINE (UA) NEGATIVE (NEGATIVE); KETONES,URINE NEGATIVE (NEGATIVE); LEUKOCYTE ESTERASE ,URINE 1+ (NEGATIVE); NITRITE,URINE NEGATIVE (NEGATIVE); PH,URINE 6.5 (5-9); PROTEIN,URINE 1+ (NEGATIVE); UROBILINOGEN,URINE 1 MG/DL (NORMAL)
[2018-07-21 11:58] LABS: BACTERIA,URINE NEGATIVE /HPF; WBC,URINE RARE /HPF
[2018-07-21] MEDS ORDERED: metroNIDAZOLE 500MG/100ML IVPB 100 ML IV ONE (12:00)
[2018-07-21] MEDS ORDERED: ceFAZolin INJECTION 1,000 MG in NS (IVPB) 50 ML IV ONE (12:00)
[2018-07-21] MEDS ORDERED: LIDOCAINE PF 2% 5 ML (XYLOCAINE) VIAL ONE (12:06)
[2018-07-21] MEDS ORDERED: SUCCINYLCHOLINE INJ 100 MG/5 ML SYR ONE (12:06)
[2018-07-21] MEDS ORDERED: ROCURONIUM 10 MG/ML 5 ML SYRINGE IV ONE (12:06)
[2018-07-21] MEDS ORDERED: ONDANSETRON 4 MG/2 ML (SDV) Z0FRAN ONE (12:06)
[2018-07-21] MEDS ORDERED: proPOfol 200 MG/20 ML (DIPRIVAN) VIAL IV ONE (12:06)
[2018-07-21] MEDS ORDERED: fentaNYL INJECTION 100 MCG/2 ML AMP ONE ×3 (12:07→15:13)
[2018-07-21] MEDS ORDERED: DEXAMETHASONE 10 MG/ML (DECADRON) 1 ML VIAL ONE ×7 (12:07→14:23)
[2018-07-21] MEDS ORDERED: SEVOFLURANE (ULTANE) 15 ML INHAL SOLN ONE ×10 (12:07→15:58)
[2018-07-21] MEDS ORDERED: MIDAZOLAM 2 MG/2 ML (VERSED) VIAL IV ONE (12:15)
[2018-07-21] MEDS: LACTATED RINGERS 1,000 ML IV PRN ×3 (12:20→17:51)
[2018-07-21] MEDS ORDERED: BUP/EPI 0.5% 1:200,000 (SENSORCAINE) 30 ML VIAL ONE (12:24)
[2018-07-21 12:45] LABS: BASOPHILS % (AUTO) 0 % (0-10); EOSINOPHILS # (AUTO) 0.2 10^3/uL (0.0-0.3); EOSINOPHILS % (AUTO) 2 % (0-10); HEMATOCRIT 43 % (35-52); LYMPHOCYTES # (AUTO) 3.9 X 10^3 (1.0-4.0); LYMPHOCYTES % (AUTO) 34 % (12-44); MEAN CORPUSCULAR HEMOGLOBIN 31 PG (25-34); MEAN CORPUSCULAR HGB CONC 33 G/DL (32-36); MEAN CORPUSCULAR VOLUME 94 FL (80-99); MEAN PLATELET VOLUME 11.7 FL (7.4-10.4); MONOCYTES # (AUTO) 0.7 X 10^3 (0.0-1.0); MONOCYTES % (AUTO) 6 % (0-12); NEUTROPHILS # (AUTO) 6.7 X 10^3 (1.8-7.8); NEUTROPHILS % (AUTO) 58 % (42-75); PLATELET COUNT 215 10^3/uL (130-400); RED BLOOD COUNT 4.52 10^6/uL (4.35-5.85); RED CELL DISTRIBUTION WIDTH 12.9 % (10.0-14.5); WHITE BLOOD COUNT 11.6 10^3/uL (4.3-11.0)
[2018-07-21] MEDS ORDERED: PHENYLEPHRINE 100 MCG/ML 10 ML (ANESTHESIA) SYR ONE (14:23)
[2018-07-21] MEDS ORDERED: NEOSTIGMINE 1 MG/ML 5 ML SYRINGE ONE (14:23)
[2018-07-21] MEDS ORDERED: GLYCOPYRROLATE 0.2 MG/ML (ROBINUL) 2 ML VIAL ONE (14:23)
[2018-07-21] MEDS ORDERED: BUPIVACAINE 0.5% 30 ML (SENSORCAINE) VIAL ONE (14:30)
[2018-07-21] MEDS ORDERED: KETOROLAC 30 MG/ML VIAL ONE (14:59)
[2018-07-21] MEDS: KETOROLAC 30 MG/ML VIAL IVP SCH ×2 (15:00→21:43)
[2018-07-21] MEDS ORDERED: HYDROmorphone 2 MG/ML VIAL (DILAUDID) IV PRN (15:30)
--- NOTE | 2018-07-21 15:34 | Operative Report ---
Operative Report Date of Procedure/Surgery Jul 21, 2018 Surgeon (s) ALLEGRA ENGLISH DO Deep Submergence Vehicle Crewmember (s): Kamila Parkinson, ARPN; Markus Espinoza, MS III Post-Operative Diagnosis LEFT ovarian dermoid, right ovarian cyst, extensive omental adhesions to the anterior abdominal wall Procedure Performed JENNIFER, LSO, right ovarian cystectomy, right ovarian cyst Pelvic washings Extensive lysis of omental adhesions Description of Procedure Anesthesia Type: General Estimated blood loss (mL): 250 Specimen(s) collected/removed uterus tubes and left ovary, consistent with dermoid right ovarian cyst Description of the Procedure with informed consent the patient was taken to the operating room where general anesthesia was found to be adequate. She was then prepped and draped in the usual sterile fashion in the supine position. A Miller catheter was placed. She had previous Pfannenstiel incisions from 3 previous sections. However, these were over the pubic bone and I was concerned that this would be too close to the bladder, so I made an incision about 4 cm superior to her previous incisions. This was made with the scalpel and carried through to the underlying layer of fascia with this scalpel and the Bovie. The tissue was noted to be very scarred. I then incision the fascia in the midline and extended this laterally with the Davison scissors and cautery. The rectus muscles were then dissected off of the fascia with the cautery. There was noted to be a defect in the fascia in the midline about 3 cm above the fascial incision. This will be repaired later. The defect is about 3x3 cm. I then the muscles in the midline. These were also noted to be very scarred. These were separate and then the peritoneum was identified and entered with Metzenbaum scissors. The incision was extended inferiorly and superiorly. I then encountered very dense omental adhesions. Rather than entering through this, I dissected what I could off the anterior wall with Metzenbaum scissors and cautery. I then was able to visualize the pelvis. There appeared to be some cystic appearing (less than 2 mm) lesions on the tubes and I initially thought these might be concerning, but upon further inspection, appeared more like adhesional disease from he previous tubal ligation. there was evidence of tubal interruption bilaterally. There was a 2-3 mm dense inclusion type lesion on the left peritoneal side wall. Due to all of this, I took washings of the pelvis and sent for pathology. Then I biopsied the lesion and it appeared to be epiploic or a fatty deposition. At this point I inserted the extra large Robin-O retractor. Then I packed the bowel away with moistened laparotomy sponges. There was no upper abdominal disease but the omental adhesions did advance up to the umbilicus. These were taken down later. There was no evidence of bowel in these adhesions, just thick , omental adhesions I then visualized the uterus. It appears small but there was a rounded density in the upper cervix, lower uterine segment. I could not palpate the cervix vaginally and it was noted now, that the cervix was pulled up, likely due to the mass in the pelvis. On the CT they did not describe a laterality, but her pain was on the right. The mass was located in the posterior culdesac but originated from the left ovary. It was not torsed but filled the entire culdesac. the right ovary had a 3 cm mass, likely consistent with a corpus luteal cyst, but due the 10 % risk of bilaterality with dermoid cysts, it opted to remove this. I grasped the cyst with shelby clamp and ten excised across the bases with the Bovie cautery. There was good hemostasis. There were adhesions with the the tubes bilaterally consistent with the previous tubal interruptions. The bladder was noted to be scarred to the anterior abdominal wall and it was now taken down the Metzenbaum scissors and there was good hemostasis. In addition I took the bladder down from the lower uterine segment and the sponge stick. I now grasped each round ligament, elevated this and then sutured each with the 2--0 Vicryl and the transected each round ligament. I now grasped the left infundibular ligament with the Yg clamp, transected and suture ligated with 2-0 Vicryl. I then grasped the uterus with bilateral Peans clamps and now excised the mass at the cornu and sent this for pathology. It was consistent with a dermoid and I could not distinguish any normal ovarian tissue. I now dissected the anterior leaves of the broad ligament off the lower uterine segment and pushed the bladder down with the sponge stick and controlled any bleeding the the cautery. I grasped the uterine ovarian ligament on the right with the Yg clamp and then transected and suture ligated with 2-0 Vicryl. I now skeletonized the uterine arteries bilaterally and then clamped with the Yg clamps. I now clamped the uterosacral ligaments bilaterally and transected and the used the hysterectomy scissors to cut along the cervicovaginal junction removing the uterus and cervix. I then placed the angle stitches with 2-0 Vicryl bilaterally and then closed the vaginal cuff with 0-Vicryl. There was good hemostasis. I then irrigated the pelvis with sterile water. I now removed all of the laparotomy sponges from the pelvis and removed the retractor. I then took down the remainder of the omental adhesions. This took approximately 45 minutes int total. I was then able to take these down with cautery. There was good hemostasis. I did not find any active bleeding on the omentum. The pelvis was again irrigated. The peritoneum was closed with 3-0 Vicryl in a running fashion The rectus muscles were inspected and there was not any active bleeding. The fascial defect was now closed with interrupted 0-Vicryl stitches and then the fascial incision was closed with 0-Vicryl in a running fashion. The subcutaneous area was now irrigated with sterile water and then this space was closed with 3-0 Vicryl in interrupted fashion. The skin was now closed with 4-0 Monocryl in running subcuticular fashion. Byrd Set was now placed and bandages were placed. Anesthesia now placed a TAP block (see their notes). The patient was now awakened and taken to recovery in stable condition. Sponge , instrument and lap counts were correct times two. Ancef and Flagyl were used preoperatively. Findings of the Procedure Very extensive thick omental adhesions of mone omentum to the anterior abdominal wall. Small uterus with possible 1-2 cm fibroid in the lower uterine segment. Left ovary with large (8 cm ) dermoid, indistinguishable from the remaining ovary. This was mostly fat but evidence of calcifiactions (teeth) and hair as well). The left tube had evidence of tubal interruption. Also there was an implant about 2 mm sized on the left pelvic side wall just anterior to the IP ligament. The was subperitoneal and appeared to be a portion of epiploica or fatty deposition. There was a 3 cm right ovarian cyst and the rest of the right ovary appeared normal. There was evidence of right ovarian interruptions. There were tiny (1- 2 mm) cystic depositions on the tubes bilaterally. Initially I thought that these were but they appeared benign on closer inspection. Allergies and Home Medications Allergies Coded Allergies: No Known Drug Allergies (Unverified , 11/08/17) Home Medications Docusate Sodium 100 Mg Capsule, 100 MG PO BID Prescribed by: ALLEGRA ENGLISH on 07/22/18 1025 Hydrocodone Bit/Acetaminophen 1 Tab Tab, 1-2 EACH PO Q6H PRN for PAIN-MODERATE Prescribed by: ANALY TORRE on 07/18/18 1803 Hydrocodone Bit/Acetaminophen 1 Tab Tab, 1 TAB PO Q4H PRN for PAIN-MODERATE no greater than 3 grams of acetominophen per 24 hours Prescribed by: ALLEGRA ENGLISH on 07/22/18 1025 Ibuprofen 600 Mg Tablet, 600 MG PO Q6H Prescribed by: ALLEGRA ENGLISH on 07/22/18 1025 Magnesium Hydroxide 400 Mg/5 Ml Oral.susp, 30 ML PO DAILY PRN for constipation Prescribed by: ALLEGRA ENGLISH on 07/22/18 1025 Ondansetron 4 Mg Tab.rapdis, 4 MG SL Q4H PRN for NAUSEA/VOMITING-1ST LINE Prescribed by: ANALY TORRE on 07/18/18 180 Simethicone 80 Mg Tab.chew, 80 MG PO q4hr PRN for gas pain Prescribed by: ALLEGRA ENGLISH on 07/22/18 1025 Patient Home Medication List Home Medication List Reviewed: Yes ALLEGRA ENGLISH DO Jul 21, 2018 15:34
[2018-07-21] MEDS ORDERED: MEPERIDINE (DEMEROL) INJ 50 MG/ML IVP ONE (16:00)
[2018-07-21] MEDS ORDERED: PROMETHAZINE INJ 25 MG/ML (PHENERGAN) AMP IVP ONE (16:00)
[2018-07-21] MEDS ORDERED: morphine INJ 10 MG/ML 1ML (SYR OR VIAL) IVP ONE (16:00)
[2018-07-21] MEDS ORDERED: HYDROmorphone 2 MG/ML VIAL (DILAUDID) IV ONE (16:00)
[2018-07-21] MEDS: morphine INJ 10 MG/ML 1ML (SYR OR VIAL) ONE (16:20)
[2018-07-21 17:05] VITALS: BP 118/56
[2018-07-21] MEDS: ONDANSETRON 4 MG/2 ML (SDV) Z0FRAN IVP PRN ×2 (17:51→17:53)
[2018-07-21] MEDS: D5 LR IV SOLUTION 1,000 ML IV SCH (18:28)
[2018-07-21] MEDS: HYDROcodone/APAP 5 MG/325 MG (LORTAB) TAB PO PRN ×2 (18:38→23:44)
[2018-07-21] MEDS ORDERED: FLU QUADRIvalent (5+ YOA) 2018-2019 (AFLURIA) 0.5 ML IM ONE (19:15)
[2018-07-21 20:52] VITALS: BP 125/64
[2018-07-22 00:15] VITALS: BP 111/56
[2018-07-22] MEDS: D5 LR IV SOLUTION 1,000 ML IV SCH ×2 (02:56→08:58)
[2018-07-22] MEDS: KETOROLAC 30 MG/ML VIAL IVP SCH ×2 (03:12→09:04)
[2018-07-22 04:10] VITALS: BP 105/55
[2018-07-22] MEDS: HYDROcodone/APAP 5 MG/325 MG (LORTAB) TAB PO PRN ×5 (04:15→20:25)
[2018-07-22 07:47] VITALS: BP 100/52
[2018-07-22] MEDS: DOCUSATE SODIUM 100 MG (COLACE) CAP PO SCH ×2 (09:04→20:25)
[2018-07-22 09:38] LABS: BASOPHILS % (AUTO) 0 % (0-10); EOSINOPHILS % (AUTO) 0 % (0-10); HEMATOCRIT 34 % (35-52); HEMOGLOBIN 11.4 G/DL (11.5-16.0); LYMPHOCYTES # (AUTO) 2.3 X 10^3 (1.0-4.0); LYMPHOCYTES % (AUTO) 11 % (12-44); MEAN CORPUSCULAR HEMOGLOBIN 31 PG (25-34); MEAN CORPUSCULAR HGB CONC 33 G/DL (32-36); MEAN CORPUSCULAR VOLUME 94 FL (80-99); MEAN PLATELET VOLUME 12.8 FL (7.4-10.4); MONOCYTES # (AUTO) 2.1 X 10^3 (0.0-1.0); MONOCYTES % (AUTO) 9 % (0-12); NEUTROPHILS # (AUTO) 17.5 X 10^3 (1.8-7.8); NEUTROPHILS % (AUTO) 80 % (42-75); PLATELET COUNT 207 10^3/uL (130-400); RED BLOOD COUNT 3.63 10^6/uL (4.35-5.85); RED CELL DISTRIBUTION WIDTH 12.9 % (10.0-14.5); WHITE BLOOD COUNT 21.8 10^3/uL (4.3-11.0)
[2018-07-22] MEDS ORDERED: DOCUSATE SODIUM 100 MG (COLACE) CAP PO SCH (09:45)
--- NOTE | 2018-07-22 09:58 | Progress Note (SOAP) ---
Subjective Date Seen by a Provider: Jul 22, 2018 Time Seen by a Provider: 09:45 Subjective/Events-last exam Imller out at 0600. She has voided and is ambulating. Low grade temp and have encouraged IS. Tolerating diet. No nausea. No flatus or BM. Minimal pain but associated with movement (had TAP block post operatively) UO was initially low but has picked up overnight. Review of Systems General: No Chills, No Night Sweats, No Fatigue, No Malaise, No Appetite, No Other HEENT: No Head Aches, No Visual Changes, No Eye Pain, No Ear Pain, No Dysphasia , No Sinus Congestion, No Post Nasal Drip, No Sore Throat, No Other Pulmonary: No Dyspnea, No Cough, No Pleuritic Chest Pain, No Other Cardiovascular: No: Chest Pain, Palpitations, Orthopnea, Paroxysmal Noc. Dyspnea, Edema, Lt Headedness, Other Gastrointestinal: Abdominal Pain, Other (no flatus or bm) Genitourinary: No Dysuria, No Frequency, No Incontinence, No Hematuria, No Retention, No Other Musculoskeletal: No: other, neck pain, shoulder pain, arm pain, back pain, hand pain, leg pain, foot pain Neurological: No: Weakness, Numbness, Incoordination, Change in speech, Confusion, Seizures, Other 07/22/18 07/22/18 07/22/18 00:15 04:10 07:47 Temp 99.1 99.9 99.6 Pulse 104 95 97 Resp 18 20 16 B/P (MAP) 111/56 (74) 105/55 (72) 100/52 (68) Pulse Ox 98 96 96 O2 Delivery Room Air Room Air Room Air 07/22/18 00:00 Intake Total 1380 ml Output Total 475 ml Balance 905 ml Laboratory Tests Test 07/21/18 11:35 07/21/18 12:20 07/22/18 08:43 Range/Units Urine Color YELLOW Urine Clarity CLEAR Urine pH 6.5 5-9 Urine Specific [place] 1.015 L 1.016-1.022 Urine Protein 1+ H NEGATIVE Urine Glucose (UA) NEGATIVE NEGATIVE Urine Ketones NEGATIVE NEGATIVE Urine Nitrite NEGATIVE NEGATIVE Urine Bilirubin NEGATIVE NEGATIVE Urine Urobilinogen 1 NORMAL MG/DL Urine Leukocyte Esterase 1+ H NEGATIVE Urine RBC (Auto) NEGATIVE NEGATIVE Urine RBC NONE /HPF Urine WBC RARE /HPF Urine Squamous Epithelial Cells 5-10 /HPF Urine Crystals NONE /LPF Urine Bacteria NEGATIVE /HPF Urine Casts NONE /LPF Urine Mucus SMALL H /LPF Urine Culture Indicated NO Urine Test NEGATIVE NEGATIVE White Blood Count 11.6 H 21.8 H 4.3-11.0 10^3/uL Red Blood Count 4.52 3.63 L 4.35-5.85 10^6/uL Hemoglobin 14.0 11.4 L 11.5-16.0 G/DL Hematocrit 43 34 L 35-52 % Mean Corpuscular Volume 94 94 80-99 FL Mean Corpuscular Hemoglobin 31 31 25-34 PG Mean Corpuscular Hemoglobin Concent 33 33 32-36 G/DL Red Cell Distribution Width 12.9 12.9 10.0-14.5 % Platelet Count 215 207 130-400 10^3/uL Mean Platelet Volume 11.7 H 12.8 H 7.4-10.4 FL Neutrophils (%) (Auto) 58 80 H 42-75 % Lymphocytes (%) (Auto) 34 11 L 12-44 % Monocytes (%) (Auto) 6 9 0-12 % Eosinophils (%) (Auto) 2 0 0-10 % Basophils (%) (Auto) 0 0 0-10 % Neutrophils # (Auto) 6.7 17.5 H 1.8-7.8 X 10^3 Lymphocytes # (Auto) 3.9 2.3 1.0-4.0 X 10^3 Monocytes # (Auto) 0.7 2.1 H 0.0-1.0 X 10^3 Eosinophils # (Auto) 0.2 0.0 0.0-0.3 10^3/uL Basophils # (Auto) 0.0 0.0 0.0-0.1 10^3/uL Objective Exam Vital Signs Date Time Temp Pulse Resp B/P (MAP) Pulse Ox O2 Delivery O2 Flow Rate FiO2 07/22/18 07:47 99.6 97 16 100/52 (68) 96 Room Air 07/22/18 04:10 99.9 95 20 105/55 (72) 96 Room Air 07/22/18 00:15 99.1 104 18 111/56 (74) 98 Room Air 07/21/18 20:52 98.2 90 20 125/64 (84) 100 Room Air 07/21/18 20:10 100 Room Air 07/21/18 17:08 Room Air 07/21/18 17:05 97.0 78 18 118/56 (76) 98 Room Air 07/21/18 11:45 97.9 87 16 125/68 (87) 100 Room Air I & O 07/22/18 07:00 Intake Total 3640 ml Output Total 2075 ml Balance 1565 ml Capillary Refill : General Appearance: No Apparent Distress Neck: Normal Inspection, Non Tender, Supple Respiratory: Chest Non Tender, Lungs Clear, Decreased Breath Sounds (bilateral bases) Cardiovascular: Regular Rate, Rhythm, No Edema, No Gallop, No Murmur, Normal Peripheral Pulses Gastrointestinal: abnormal bowel sounds (minimal bowel sounds) Neurologic/Psychiatric: Alert, Oriented x3 Results Lab Laboratory Tests 07/21/18 11:35: Urine Color YELLOW, Urine Clarity CLEAR, Urine pH 6.5, Urine Specific [place] 1.015L, Urine Protein 1+H, Urine Glucose (UA) NEGATIVE, Urine Ketones NEGATIVE, Urine Nitrite NEGATIVE, Urine Bilirubin NEGATIVE, Urine Urobilinogen 1, Urine Leukocyte Esterase 1+H, Urine RBC (Auto) NEGATIVE, Urine RBC NONE, Urine WBC RARE, Urine Squamous Epithelial Cells 5-10, Urine Crystals NONE, Urine Bacteria NEGATIVE, Urine Casts NONE, Urine Mucus SMALLH, Urine Culture Indicated NO, Urine Test NEGATIVE 07/21/18 12:20: White Blood Count 11.6H, Red Blood Count 4.52, Hemoglobin 14.0, Hematocrit 43, Mean Corpuscular Volume 94, Mean Corpuscular Hemoglobin 31, Mean Corpuscular Hemoglobin Concent 33, Red Cell Distribution Width 12.9, Platelet Count 215, Mean Platelet Volume 11.7H, Neutrophils (%) (Auto) 58, Lymphocytes (%) (Auto) 34 , Monocytes (%) (Auto) 6, Eosinophils (%) (Auto) 2, Basophils (%) (Auto) 0, Neutrophils # (Auto) 6.7, Lymphocytes # (Auto) 3.9, Monocytes # (Auto) 0.7, Eosinophils # (Auto) 0.2, Basophils # (Auto) 0.0 07/22/18 08:43: White Blood Count 21.8H, Red Blood Count 3.63L, Hemoglobin 11.4L, Hematocrit 34L , Mean Corpuscular Volume 94, Mean Corpuscular Hemoglobin 31, Mean Corpuscular Hemoglobin Concent 33, Red Cell Distribution Width 12.9, Platelet Count 207, Mean Platelet Volume 12.8H, Neutrophils (%) (Auto) 80H, Lymphocytes (%) (Auto) 11L, Monocytes (%) (Auto) 9, Eosinophils (%) (Auto) 0, Basophils (%) (Auto) 0, Neutrophils # (Auto) 17.5H, Lymphocytes # (Auto) 2.3, Monocytes # (Auto) 2.1H, Eosinophils # (Auto) 0.0, Basophils # (Auto) 0.0 Meds Has taken 4 doses of toradol. Has used minimal pain medications. Will start scheduled motrin. Has lortab for pain and diluadid for breakthrough. Will start mild bowel stim Procedures S/p JENNIFER, extensive lysis of omental adhesions LSO and right salpingectomy and ovarian cystectomy Assessment/Plan Assessment/Plan Assess & Plan/Chief Complaint POD #1 s/p JENNIFER, LSO and right ovarian cystectomy Encourage ambulation, IS. Wearing SCDs. Start mild bowel stim (MOM, colace). Slight concern with possibility of bowel injury due to extensive adhesions, however, adhesions were omental and abdominal wall rather than bowel. Plan for DC tomorrow or Tuesday. Clinical Quality Measures DVT/VTE Risk/Contraindication: Risk Factor Score Per Nursin RFS Level Per Nursing on Admit: 3=High ALLEGRA ENGLISH DO Jul 22, 2018 09:58
[2018-07-22 10:02] LABS: BUN/CREATININE RATIO 9; CARBON DIOXIDE 21 MMOL/L (21-32); CHLORIDE 107 MMOL/L (98-107); CREATININE SERUM 0.78 MG/DL (0.60-1.30); GFR ESTIMATED > 60; GLUCOSE 135 MG/DL (70-105); POTASSIUM 3.4 MMOL/L (3.6-5.0); SODIUM 139 MMOL/L (135-145)
[2018-07-22] MEDS ORDERED: SIME80TA29 PO (10:25)
[2018-07-22] MEDS ORDERED: IBUP-844 PO (10:25)
[2018-07-22] MEDS ORDERED: DOCU100C37 PO (10:25)
[2018-07-22] MEDS ORDERED: ACHD5005 PO (10:25)
[2018-07-22] MEDS ORDERED: MAGN400O7 PO (10:25)
--- NOTE | 2018-07-22 10:28 | Discharge Inst-Women's Service ---
Discharge Inst-Women's Serv Depart Medication/Instructions New, Converted or Re-Newed RX: RX on Chart Final Diagnosis dermoid cyst, left right ovarian cyst extensive omental adhesions Consults/Follow Up Additional Follow Up: Yes (1 week for incision check with Kamila/Quentin; 6 weeks for post op exam and vaginal exam) Activity Activity: Activity as Tolerated (n lifting over 25 lbs) Driving Instructions: No Driving for 1 Week NO SMOKING: NO SMOKING Nothing Inside Vagina: No Douching, No [place], No Tampons Diet Discharge Diet: No Restrictions Symptoms to Report to : Swelling Increased, Eyesight Changes, Pain Increased , Urine Color Change, Constipation(Persistant) (DO NOT use Enema), Fever Over 101 Degrees F, Pain/Pressure in Chest, Pain/Pressure in Jaw, Vaginal Bleeding Increase, Cramps in Feet or Legs, Vaginal Discharge Foul For Any Problems or Questions: Contact Your Physician Skin/Wound Care Infection Signs and Symptoms: Increased Redness, Foul Odor of Wound, Increased Drainage, Skin Itchy or Has a Rash, Increased Swelling, Temperature Above 101 F Operative Area Clean and Dry: Keep Incision Clean/Dry Stitches/[place]/Dermabond: Dermabond Bathing Instructions: ALLEGRA Ugalde DO Jul 22, 2018 10:28
[2018-07-22 10:32] LABS: BAND NEUTROPHILS 0 %; BASOPHILS % (MANUAL) 0 %; EOSINOPHILS % (MANUAL) 0 %; LYMPHOCYTES % (MANUAL) 9 %; MONOCYTES % (MANUAL) 8 %; NEUTROPHILS % (MANUAL) 83 %; RBC MORPH NORMAL
[2018-07-22 12:40] VITALS: BP 120/59
[2018-07-22] MEDS: MILK OF MAGNESIA 400 MG/5 ML 30 ML UDC PO SCH ×2 (14:35→20:24)
[2018-07-22 15:42] VITALS: BP 125/61
--- NOTE | 2018-07-22 16:13 | Anesthesia-General Post-Op ---
General Patient Condition Mental Status/LOC: Same as Preop Cardiovascular: Satisfactory Nausea/Vomiting: Absent Respiratory: Satisfactory Pain: Controlled Complications: Absent Post Op Complications Complications None Follow Up Care/Instructions Patient Instructions None needed. Anesthesia/Patient Condition Patient Condition Patient is doing well, no complaints, stable vital signs, no apparent adverse anesthesia problems. No complications reported per nursing. SERENITY RINALDI CRNA Jul 22, 2018 16:13
[2018-07-22] MEDS: IBUPROFEN 600 MG (MOTRIN) TAB PO SCH ×2 (16:35→20:26)
[2018-07-22 20:04] VITALS: BP 108/54
[2018-07-22] MEDS ORDERED: SIMETHICONE 80 MG (MYLICON) CHEW PO PRN (23:30)
[2018-07-23] VITALS: BP 110/60
[2018-07-23] MEDS: HYDROcodone/APAP 5 MG/325 MG (LORTAB) TAB PO PRN ×2 (01:21→08:10)
[2018-07-23] MEDS: ONDANSETRON 4 MG/2 ML (SDV) Z0FRAN IVP PRN ×2 (01:21→08:10)
[2018-07-23 04:00] VITALS: BP 105/57
[2018-07-23] MEDS: IBUPROFEN 600 MG (MOTRIN) TAB PO SCH ×4 (04:29→21:17)
[2018-07-23 04:40] LABS: BASOPHILS % (AUTO) 0 % (0-10); EOSINOPHILS # (AUTO) 0.3 10^3/uL (0.0-0.3); EOSINOPHILS % (AUTO) 2 % (0-10); HEMATOCRIT 32 % (35-52); HEMOGLOBIN 10.5 G/DL (11.5-16.0); LYMPHOCYTES # (AUTO) 3.7 X 10^3 (1.0-4.0); LYMPHOCYTES % (AUTO) 25 % (12-44); MEAN CORPUSCULAR HEMOGLOBIN 31 PG (25-34); MEAN CORPUSCULAR HGB CONC 32 G/DL (32-36); MEAN CORPUSCULAR VOLUME 95 FL (80-99); MEAN PLATELET VOLUME 12.4 FL (7.4-10.4); MONOCYTES # (AUTO) 1.3 X 10^3 (0.0-1.0); MONOCYTES % (AUTO) 9 % (0-12); NEUTROPHILS # (AUTO) 9.2 X 10^3 (1.8-7.8); NEUTROPHILS % (AUTO) 64 % (42-75); PLATELET COUNT 188 10^3/uL (130-400); WHITE BLOOD COUNT 14.5 10^3/uL (4.3-11.0)
[2018-07-23 08:00] VITALS: BP 117/67
[2018-07-23] MEDS: MILK OF MAGNESIA 400 MG/5 ML 30 ML UDC PO SCH ×3 (08:59→21:16)
[2018-07-23] MEDS: DOCUSATE SODIUM 100 MG (COLACE) CAP PO SCH ×2 (08:59→21:17)
[2018-07-23] MEDS ORDERED: HYDR-34 PO (09:22)
--- NOTE | 2018-07-23 09:22 | Progress Note-Standard ---
Standard Progress Note Progress Notes/Assess & Plan Date Seen by a Provider: Jul 23, 2018 Time Seen by a Provider: 09:15 Progress/Assessment & Plan Patient was signed out to me by my partner Dr. Tinajero. Reports that she felt better yesterday, and that she is now hurting much more despite taking pain meds. She also reports nausea but no vomiting. Denies vb. Reports passing flatus. Vital Sign - Last 24 Hours 07/22/18 07/22/18 07/22/18 07/22/18 12:40 15:42 20:04 21:00 Temp 99.3 99.4 99.6 Pulse 94 82 83 Resp 14 16 16 B/P (MAP) 120/59 (79) 125/61 (82) 108/54 (72) Pulse Ox 98 96 96 100 O2 Delivery Room Air Room Air Room Air Room Air 07/23/18 07/23/18 00:00 04:00 Temp 98.9 98.8 Pulse 91 75 Resp 20 20 B/P (MAP) 110/60 (77) 105/57 (73) Pulse Ox 95 93 O2 Delivery Room Air Room Air Intake and Output 07/22/18 07/22/18 07/23/18 15:00 23:00 07:00 Intake Total 800 ml 769 ml 410 ml Output Total 600 ml 250 ml 200 ml Balance 200 ml 519 ml 210 ml Incision: c/d/i Abd: soft/ mildly tender diffusely/ no rebound or guarding Diagnosis: POD #2 s/p JENNIFER, LSO and right ovarian cystectomy Post operative pain control concerns, and nausea Acute blood loss anemia P: Discussed with patient how anesthesia did administer a TAP block postoperatively , and that is likely why she feels worse today, because that has since worn off. She is encouraged to ambulate today Added Reglan to GI meds to hopefully help with GI motility, and decrease nausea Hydrocodone increased to 7.5 Possibly dc later today, but likely tomorrow KARLA CORONADO DO Jul 23, 2018 09:22
[2018-07-23 12:00] VITALS: BP 148/94
[2018-07-23] MEDS: METOCLOPRAMIDE INJ 10 MG/2 ML (REGLAN) IVP SCH ×3 (12:40→23:46)
[2018-07-23 15:40] VITALS: BP 119/66
[2018-07-23] MEDS: HYDROcodone/APAP 7.5 MG/325 MG (LORTAB, LORCET PLUS) TABLET PO PRN ×2 (17:30→23:56)
[2018-07-23 19:25] VITALS: BP 123/69
[2018-07-24] VITALS: BP 103/52
[2018-07-24 04:00] VITALS: BP 123/61
[2018-07-24] MEDS: IBUPROFEN 600 MG (MOTRIN) TAB PO SCH ×2 (04:09→09:33)
[2018-07-24] MEDS: METOCLOPRAMIDE INJ 10 MG/2 ML (REGLAN) IVP SCH ×2 (05:13→11:04)
[2018-07-24 08:00] VITALS: BP 135/69
[2018-07-24] MEDS: DOCUSATE SODIUM 100 MG (COLACE) CAP PO SCH (09:33)
--- NOTE | 2018-07-24 10:00 | Progress Note-Standard ---
Standard Progress Note Progress Notes/Assess & Plan Date Seen by a Provider: Jul 24, 2018 Time Seen by a Provider: 08:15 Progress/Assessment & Plan Patient was signed out to me by my partner Dr. Tinajero. Reports that she is doing much better today and is ready to go home. She also reports nausea is gone and has passed a BM yesterday. Denies vb. Reports passing flatus. Vital Sign - Last 24 Hours 07/23/18 07/23/18 07/23/18 07/23/18 12:00 15:40 19:25 21:00 Temp 97.9 98.7 98.6 Pulse 80 78 74 Resp 18 18 18 B/P (MAP) 148/94 (112) 119/66 (83) 123/69 (87) Pulse Ox 99 99 98 O2 Delivery Room Air Room Air Room Air Room Air 07/24/18 07/24/18 07/24/18 00:00 04:00 08:00 Temp 98.7 99.1 98.7 Pulse 69 75 72 Resp 20 20 18 B/P (MAP) 103/52 (69) 123/61 (81) 135/69 (91) Pulse Ox 98 96 97 O2 Delivery Room Air Room Air Room Air Intake and Output 07/23/18 07/23/18 07/24/18 15:00 23:00 07:00 Intake Total 820 ml 520 ml 50 ml Output Total 300 ml 500 ml 200 ml Balance 520 ml 20 ml -150 ml Incision: c/d/i Abd: soft/ mildly tender diffusely/ no rebound or guarding Diagnosis: POD #3 s/p JENNIFER, LSO and right ovarian cystectomy Acute blood loss anemia P: DC later today PO precautions reviewed KARLA CORONADO DO Jul 24, 2018 10:00 am
--- NOTE | 2018-07-27 09:20 | Physician Query Clarification ---
PQ-Conflicting Diagnosis Admission/Discharge Admission Date: Jul 21, 2018 at 11:20 Discharge Date: Jul 24, 2018 at 11:50 The medical record reflects the following clinical scenario: History/Risk Factors: Lt. dermoid, Rt ovarian cyst s/p JENNIFER, LSO, Rt ovarian cystectomy Clinical Findings: HGB 14.0>10.5, EBL 250 Treatment: Not seeing treatment given Question: Do you agree with the impression of acute blood loss anemia per Dr. Ragsdale. Please document a response below. PHYSICIAN RESPONSE Do you agree w/Consulting Dx?: Yes Explanation of clincal finding Iron is replaced. No further treatment is necessary In responding to this query, please exercise your independent professional judgment. The purpose of this communication is to more accurately reflect the complexity of your patients condition. The fact that a question is asked does not imply that any particular answer is desired or expected. Thank you for your timely response to this clarification. Requestors name: Tai THIS PHYSICIAN QUERY FORM IS A PERMANENT PART OF THE MEDICAL RECORD TAI MUNOZ Jul 27, 2018 9:20 am ALLEGRA ENGLISH DO Aug 11, 2018 5:01 pm
--- NOTE | 2018-08-21 10:42 | Discharge Summary ---
Diagnosis/Chief Complaint Date of Admission Jul 21, 2018 at 11:20 Date of Discharge Jul 24, 2018 at 11:50 Discharge Date: Jul 24, 2018 Discharge Time: 11:50 Admission Diagnosis Admission Diagnosis dermoid cyst of ovary (right suspected, but left surgically) Discharge Diagnosis Left ovarian dermoid cyst of ovary extensive omental adhesions Reason Hospital Visit Patient underwent JENNIFER, LSO, right salpingectomy and extensive omental adhesions on 07/21/18. This was complicated by extensive adhesions of the omentum. Please see the operative note. She was admitted to women's services following this surgery. A TAP block was done following the surgery. Initial post operative Hgb was 11.4 with WBC 21,400 (initial WBC was 11,600 and WBC 14). She had post operative pain management with Toradol and Dilaudid and then po Motrin and Lortab. On post operative day 1 she was not taking much pain medication and had not required anything IV. She had decreased bowel sounds on day one and bowel regimen was started. In addition, she had decrease Urine output overnight but this picked up and Miller was removed on day 1 post operatively. On day two she was planned to go home but her pain had increased, likely due to increased activity and due to wearing off of the TAP block. Dr. Ragsdale was managing her care. He held discharge due to pain management. She was tolreating diet. and passing flatus but no BM. She was complaining of increased nausea. Reglan was added for bowel stimulation. lortab increased to 7.5 mg On day three here pain was better controlled. Nausea improved and had bowel movement. WBC 14.5 and hemoglobin 10.5. She was discharged to home. Discharge Summary Procedures: JENNIFER, LSO, right salpingectoy, extensive lysis of adhesions Discharge Physical Examination Allergies: Coded Allergies: No Known Drug Allergies (Unverified , 11/08/17) Vitals & I&Os 135/69 T 97.8 General Appearance: Alert, Oriented X3 Respiratory: Clear to Auscultation, Normal Air Movement Cardiovascular: Regular Rate, Normal S1, Normal S2, No Murmurs Abdominal: Normal Bowel Sounds, Other (Inc c/d/i) Hospital Course see above Labs see above Discussion & Recommendations DC home in stable condition on POD #3. Discharge Condition at discharge table Instructions to patient/family Please see electronic discharge instructions given to patient. Discharge Medications Reviewed and agree with Discharge Medication list on patient's Discharge Instruction sheet Clinical Quality Measures DVT/VTE Risk/Contraindication: Risk Factor Score Per Nursin RFS Level Per Nursing on Admit: 3=High ALLEGRA ENGLISH DO Aug 21, 2018 10:42
== END 2018-07-24 11:50 | disposition home or self-care (01) | DRG 742 ==
LOC: 4TH 11:20 → SURG 11:21 → 4TH 17:05
PROVIDERS: ADMIT Obstetrics & Gynecology; ATTEND Obstetrics & Gynecology
PROC: 0UTC0ZZ Resection of Cervix, Open Approach (ICD-10-PCS; 2018-07-21)
PROC: 0DNU0ZZ Release Omentum, Open Approach (ICD-10-PCS; 2018-07-21)
PROC: 0UT10ZZ Resection of Left Ovary, Open Approach (ICD-10-PCS; 2018-07-21)
PROC: 0UT60ZZ Resection of Left Fallopian Tube, Open Approach (ICD-10-PCS; 2018-07-21)
PROC: 0UB00ZZ Excision of Right Ovary, Open Approach (ICD-10-PCS; 2018-07-21)
PROC: 0DBW0ZX Excision of Peritoneum, Open Approach, Diagnostic (ICD-10-PCS; 2018-07-21)
PROC: 0UT90ZZ Resection of Uterus, Open Approach (ICD-10-PCS; principal; 2018-07-21 12:59)
DX: D27.1 Benign neoplasm of left ovary (principal); N83.201 Unspecified ovarian cyst, right side; N73.6 Female pelvic peritoneal adhesions (postinfective); D62 Acute posthemorrhagic anemia
CPT/HCPCS: 36415; 74177; 80048; 80053; 81000; 82150; 83690; 84703; 85007; 85025; 85027; 86850; 86900; 86901; 87081; 88112; 88305; 88307; 94664; 96374